=== PATIENT | male | born 1945 | race Caucasian/White ===

== ENCOUNTER → 2017-09-10 | Outpatient (CLI) | payer MEDICARE, BC | LOC: COL.RAD 09:03 | DX: C61 Malignant neoplasm of prostate (principal) | CPT/HCPCS: A9503 ==

== ENCOUNTER 2018-08-16 21:01 | Emergency (ER) | payer MEDICARE, BC ==
[~2018-08-16] VITALS: Ht 170.2 cm; Wt 128.6 kg
[2018-08-16 21:04] VITALS: TEMP 97.6
[2018-08-16] MEDS ORDERED: APRESOLINE 10MG10 MG PO (21:38)
[2018-08-16 21:41] VITALS: BP 165/86; PULSE 72
[2018-08-16] MEDS ORDERED: NORVASC 10MG10 MG PO (21:57)
[2018-08-16] MEDS ORDERED: LIPITOR20 MG PO (21:57)
[2018-08-16] MEDS ORDERED: BENICAR HCT 251 TAB PO (21:58)
[2018-08-16] MEDS ORDERED: CALCIUM CARBON650 M2 PO (21:59)
[2018-08-16] MEDS ORDERED: VITAMIN D 400400 IU PO (21:59)
[2018-08-16] MEDS ORDERED: MAG-OX 400400 MG/TAB PO (22:00)
[2018-08-16] MEDS ORDERED: FLEXERIL 1010 MG/TAB PO (22:00)
[2018-08-16] MEDS ORDERED: ASPIRIN 81M81 MG/TA2 PO (22:01)
[2018-08-16] MEDS ORDERED: MOBIC15 MG PO (22:01)
[2018-08-16] MEDS ORDERED: ULTRAM 50MG TAB50 MG PO (22:01)
[2018-08-16] MEDS ORDERED: ZYLOPRIM 300MG300 MG PO (22:01)
[2018-08-16] MEDS ORDERED: FLOMAX 0.40.4 MG/CAP PO (22:02)
[2018-08-16] MEDS ORDERED: MEGACE20 MG PO (22:02)
[2018-08-16] MEDS ORDERED: GLUCOPHAGE500 MG/TAB PO (22:02)
== END 2018-08-16 21:53 | disposition home or self-care (01) ==
LOC: COL.ER 21:01
DX: I10 Essential (primary) hypertension (principal); Z95.5 Presence of coronary angioplasty implant and graft

== ENCOUNTER 2018-11-03 13:05 | Inpatient (IN) | payer MEDICARE, BC ==
[~2018-11-03] VITALS: Ht 170.2 cm; Wt 120.0 kg
[~2018-11-03 13:05] MED LIST: APRESOLINE 10MG10 MG PO; ASPIRIN 81M81 MG/TA2 PO; BENICAR HCT 251 TAB PO; CALCIUM CARBON650 M2 PO; FLEXERIL 1010 MG/TAB PO; FLOMAX 0.40.4 MG/CAP PO; GLUCOPHAGE500 MG/TAB PO; LIPITOR20 MG PO; MAG-OX 400400 MG/TAB PO; MEGACE20 MG PO; MOBIC15 MG PO; NORVASC 10MG10 MG PO; ULTRAM 50MG TAB50 MG PO; VITAMIN D 400400 IU PO; ZYLOPRIM 300MG300 MG PO
[2018-11-28] VITALS (11 sets, daily range): BP systolic 102–157; BP diastolic 61–87; PULSE 82–110; TEMP 98–98.4
--- NOTE | 2018-11-28 10:00 | NUR ---
arrived on unit per WC to room 327, prepped for surgery without incident, explanation given to patient and his on going to and returning from surgery, verbalizes understanding, lab in and blood drawn,
[2018-11-28 10:03] LABS: INR 1.3 (0.8-3.0); PROTHROMBIN TIME 14.5 SECONDS (9.7-12.8)
--- NOTE | 2018-11-28 13:50 | NUR ---
returned to room from PACU per bed, awake and alert, IV infusing and placed on pumpat 100ml/hr, O2 off and O2 sat 94%, has sensation to left foot and is able to wiggle toes on left, has minimal sensation to right foot but unable to move foot, occlusive dressing to right hip CD&I, SCDs and SIMEON hose on bilaterally, full assessment completed, see interventions for further info, taking water and tolerates well, will provide pudding per his request, at bedside
--- NOTE | 2018-11-28 14:00 | NUR ---
had chocolate pudding and tolerated well,
--- NOTE | 2018-11-28 14:30 | NUR ---
has sensation to right foot and is moving toes, c/o pain to low back area, repositioned over towards left side for comfort and he states this helps back pain a bit,
--- NOTE | 2018-11-28 14:50 | NUR ---
continues to c/o back pain and asked to sit up on side of bed, sat up on side of bed, then stood and ambulated to recliner, states this does feel better and will sit up in recliner for a while,
--- NOTE | 2018-11-28 15:30 | NUR ---
requesting to go back to bed, assited out of chair and into bed, c/o pain to right hip and medicated with hydrocodone 7.5mg 2 tabs, remains at bedside
--- NOTE | 2018-11-28 15:58 | NUR ---
DANIELA met with the patient and patient's , Trisha, to discuss discharge plan. The patient lives in [place] with his . He reports independence with ADLs and has a cane and walker. The patient's PCP is Dr. Stanislav Damon and he receives his medications at the [facility]. He reports no difficulties obtaining his meds. The patient does not have advanced directives in EMR, but he states that he did complete one in the past. He states that him and his cannot find their copy though and were interested in a form for DPOA-HC. DANIELA provided. The patient plans to return home with his upon discharge. He states that his doctor informed him that he should not need therapy upon discharge. No identified needs at this time, but SW to continue to follow.
--- NOTE | 2018-11-28 16:30 | NUR ---
continues to c/o pain to back and right hip, medicated with morphine 4mg slow IV
--- NOTE | 2018-11-28 17:00 | NUR ---
appears to be dozing, awakens easily and states pain is better, still has some in his back but it is also much better, MARK Josue notified that he was given 10mg morphine slow IV,
--- NOTE | 2018-11-28 17:30 | NUR ---
awakens easily and visits with family, denies needs
--- NOTE | 2018-11-28 18:15 | NUR ---
repositioned up in bed, has ordered something to eat
--- NOTE | 2018-11-28 18:48 | NUR ---
bedside shift report given to ANTHONY Meier
--- NOTE | 2018-11-28 20:38 | NUR ---
Assessment completed. Patient is A&O x 4. VSS, on room air at this time. Pain controlled at this time with alternating [place]. Bulky foam tape dressing to right hip is CDI with an ice pack maintained to hip. Pedal pulses intact. BLE kayli hose/scds on. Tolerating diet with no c/o nausea. Voiding with no difficulities. IVF infusing with intermittent antibiotic per orders. Up with assist x 1 with walker and gait belt, gait is steady. Denies any concerns or needs at this time. Bed is in a low position with call light in reach.
--- NOTE | 2018-11-28 23:14 | NUR ---
Patient ambulated to the bathroom with standby assist and walker, gait steady. Reports pain to incision and chronic lower back prn [place] given at this time. Repositioned in bed with assist x 2. Denies any concerns or needs, call light remains within reach.
[2018-11-29 00:53] VITALS: BP 155/78; PULSE 116; TEMP 98.6
--- NOTE | 2018-11-29 03:00 | NUR ---
Patient is resting with eyes closed and even respirations, does not appear to be in any distress. Bed remains in a low position with call light in reach.
--- NOTE | 2018-11-29 04:51 | NUR ---
Patient has rested well through the night. Right hip and chronic back pain has continued to be controlled with [place] and [place]. Right hip bulky foam tape dressing remains CDI with an ice pack maintained. Up with standby assist through the night with walker, gait remains steady. IV to INT at this time with good PO intake, last dose of antibiotic due later this morning. Bed is in a low position with call light in reach.
[2018-11-29 05:26] VITALS: BP 154/85; PULSE 104; TEMP 98.3
--- NOTE | 2018-11-29 06:30 | NUR ---
Reported on to Adrienne CRUZ. Patient resting comfortably, supine in bed alert and oriented. Incision site to right hip covered with foam occlusive dressing, CDI. INT to right hand CDI, no signs of infiltration. SCDs and SIMEON hose thigh high on bilaterally. VSS and assessment as charted. C/O 4/10 sharp pain to right hip while moving.
[2018-11-29 06:48] LABS: HEMATOCRIT 38.3 % (42.0-52.0); HEMOGLOBIN 12.8 g/dl (13.5-18.0)
[2018-11-29 07:15] VITALS: BP 133/94; PULSE 82; TEMP 98
--- NOTE | 2018-11-29 08:45 | NUR ---
PRN Hydrocodone 2 tablets given PO for pain. Patient refused Flomax because he stated that his doctor has ordered that he take this medication HS.
--- NOTE | 2018-11-29 09:25 | NUR ---
Pain reassessed after PT conducted and rated at a 3/10 to right hip while sitting in recliner, legs elevated and ice applied to affected side.
--- NOTE | 2018-11-29 10:30 | NUR ---
SIMEON hose removed bilaterally. Patient assisted from sitting to standing with gait belt and walker. Occlusive dressing removed. Incision site well approximated with yair, CDI, no redness, edema or drainage noted. Aquacel dressing applied over incision. Patient tolerated well. C/O 0/10 pain. Assisted back to chair, legs elevated, ice pack applied to right hip. Patient voiced no other concerns at this time.
[2018-11-29 11:16] VITALS: BP 116/70; PULSE 91; TEMP 98.1
--- NOTE | 2018-11-29 11:30 | NUR ---
Reported off to Adrienne CRUZ.
[2018-11-29 16:11] VITALS: BP 156/82; PULSE 90; TEMP 98.1
--- NOTE | 2018-11-29 19:30 | NUR ---
Assessment completed. Patient is A&O x 4. VSS, on room air. Right hip pain controlled with current oral regimen at this time. Aquacell dressing to right hip is CDI with a fresh ice pack applied. Pedal pulses intact. BLE kayli hose/scds on while in bed. Tolerating diet with no c/o nausea. Voiding with no difficulities, does have some urgency when needing to urinate. INT to right hand. Up with assist x 1 with walker and gait belt, gait is steady. Denies any concerns or needs at this time. Bed is in a low position with call light in reach.
[2018-11-29 21:00] VITALS: BP 151/85; PULSE 114; TEMP 98.6
--- NOTE | 2018-11-29 22:45 | NUR ---
Patient has been resting well, when awakened he denies any pain. Continues to ambulate with standby assist to the restroom with a steady gait. Denies any concerns or needs at this time.
[2018-11-30 00:52] VITALS: BP 121/62; PULSE 106; TEMP 98.6
[2018-11-30 04:00] VITALS: BP 150/93; PULSE 89; TEMP 99.1
--- NOTE | 2018-11-30 05:13 | NUR ---
Patient has rested intermittently through the night, reports after requesting to have his Flomax rescheduled with HS meds that he felt he was up a lot through the night urinating and wasn't able to make it sometimes having incontinence. VSS. Pain to right hip and chronic low back pain continues to be controlled with oral pain medication. Aquacell dressing to right hip remains CDI with a fresh ice pack applied this morning. Denies any concerns or needs at this time. Currently patient is sitting up in the chair with call light in reach.
[2018-11-30 06:14] LABS: HEMATOCRIT 39.7 % (42.0-52.0); HEMOGLOBIN 13.3 g/dl (13.5-18.0)
--- NOTE | 2018-11-30 06:30 | NUR ---
Reported on to Martin CRUZ. Patient resting comfortably, sitting in recliner with legs elevated, alert and oriented. Aquacell dressing to right hip is CDI. INT to right hand CDI and no signs of infiltration, redness, warmth, tenderness noted. Thigh high SIMEON hose on bilateral lower extremities. Pain rated as a constant, aching 2/10 to right hip which does not radiate. VSS, assessment as charted.
[2018-11-30 07:00] VITALS: BP 124/79; PULSE 84; TEMP 98.8
[2018-11-30] MEDS ORDERED: ROXICODONE 55 MG/TAB PO (07:01)
[2018-11-30] MEDS ORDERED: NORCO 325 MG-7.1 TAB PO (07:01)
[2018-11-30] MEDS ORDERED: ASPIRIN 32325 MG/TAB PO (07:05)
--- NOTE | 2018-11-30 07:21 | NUR ---
Report from Renea CRUZ.
--- NOTE | 2018-11-30 07:30 | NUR ---
Patient ambulated from chair to sink to shave and from sink to toilet to void. Ambulated over ten feet with walker and standby assist. Patient returned to recliner, legs elevated and ice pack applied to right hip. Pain reassessed at 2/10 to right hip.
--- NOTE | 2018-11-30 08:45 | NUR ---
[place] 7.5mg 1 tablet given PO for anticipated pain with OT/PT.
--- NOTE | 2018-11-30 08:55 | NUR ---
INT disconnected. Catheter tip intact. Patient tolerated.
--- NOTE | 2018-11-30 09:30 | NUR ---
Pain reassessed after OT had patient shower. Pain stated at 3-4/10 aching to right hip. Patient does not request any pain medication at this time.
--- NOTE | 2018-11-30 10:59 | NUR ---
agree with student's assessments.
[2018-11-30 11:22] VITALS: BP 137/71; PULSE 99; TEMP 98.9
--- NOTE | 2018-11-30 11:25 | NUR ---
Reported off to Martin CRUZ.
--- NOTE | 2018-11-30 12:03 | NUR ---
First visit from the scalp treatment operator. No needs right now.
--- NOTE | 2018-11-30 12:41 | NUR ---
PT RESTING IN BED AFTER EATING LUNCH. PREMEDICATED FOR THERAPY PER PT REQUEST. PLAN ON DISCHARGE HOME LATER TODAY.
--- NOTE | 2018-11-30 15:29 | NUR ---
DISCHARGE INSTRUCTIONS REVIEWED WITH PT QUESTIONS ANSWERED. PT TAKEN BY WHEEL CHAIR TO FRONT BY STAFF.
== END 2018-11-30 15:10 | disposition home or self-care (01) | DRG 470 ==
LOC: JCC 11-28 07:30
PROVIDERS: ADMIT Orthopaedic Surgery
PROC: 0SR90JA Replacement of Right Hip Joint with Synthetic Substitute, Uncemented, Open Approach (ICD-10-PCS; principal; 2018-11-28 10:30)
DX: M16.11 Unilateral primary osteoarthritis, right hip (principal); Z68.41 Body mass index [BMI] 40.0-44.9, adult; I12.9 Hypertensive chronic kidney disease with stage 1 through stage 4 chronic kidney disease, or unspecified chronic kidney disease; N18.3 Chronic kidney disease, stage 3 (moderate); I25.10 Atherosclerotic heart disease of native coronary artery without angina pectoris; Z95.5 Presence of coronary angioplasty implant and graft; E78.5 Hyperlipidemia, unspecified; Z85.46 Personal history of malignant neoplasm of prostate; Z87.891 Personal history of nicotine dependence; E66.9 Obesity, unspecified
CPT/HCPCS: A4216; A9284; C1776; J0690; J2250; J2270; J2370; J2405; J2704; J3010; J7030

== ENCOUNTER → 2018-11-23 | Outpatient (CLI) | payer MEDICARE, BC | LOC: COL.LAB 14:27 | DX: Z01.812 Encounter for preprocedural laboratory examination (principal) ==

== ENCOUNTER → 2019-01-17 | Outpatient (CLI) | payer MEDICARE, BC ==
[~2019-01-17] MED LIST changes: +ASPIRIN 32325 MG/TAB PO; +NORCO 325 MG-7.1 TAB PO; +ROXICODONE 55 MG/TAB PO
== END ==
LOC: COL.RAD 10:09
DX: D50.9 Iron deficiency anemia, unspecified (principal); I26.99 Other pulmonary embolism without acute cor pulmonale; J90 Pleural effusion, not elsewhere classified; J98.11 Atelectasis; M46.94 Unspecified inflammatory spondylopathy, thoracic region; N28.1 Cyst of kidney, acquired; K80.20 Calculus of gallbladder without cholecystitis without obstruction; Z96.643 Presence of artificial hip joint, bilateral; K57.30 Diverticulosis of large intestine without perforation or abscess without bleeding
CPT/HCPCS: Q9967

== ENCOUNTER 2019-06-15 10:00 | Emergency (ER) | payer MEDICARE, BC ==
[~2019-06-15] VITALS: Ht 170.2 cm; Wt 123.2 kg
[2019-06-15 10:06] VITALS: BP 146/117; TEMP 98.4
[2019-06-15 10:36] LABS: BASO # 0.1 (0.0-0.2); BASO % 0.5 % (0.0-2.0); EOS # 0.4 (0.0-0.7); EOS % 3.9 % (0-4.0); GRAN # 6.7 (1.4-6.5); GRAN % 69.4 % (42.2-75.2); HEMATOCRIT 41.7 % (42.0-52.0); HEMOGLOBIN 13.7 g/dl (13.5-18.0); LYMPH # 1.8 (1.2-3.4); LYMPH % 18.3 % (20.0-51.0); MEAN CELL VOLUME 94 fl (80.0-100.0); MEAN CORPUSCULAR HEMOGLOBIN 31 pg (27.0-31.0); MEAN CORPUSCULAR HGB CONC 33 g/dl (33.0-37.0); MEAN PLATELET VOLUME 10.7 fl (7.4-10.4); MONO # 0.7 (0.1-0.6); PLATELET COUNT 282 K/mm3 (130-400); RED BLOOD COUNT 4.45 M/mm3 (4.20-5.60); REDCELL DISTRIBUTION WIDTH-CV 14.6 % (11.5-14.5)
[2019-06-15 10:40] LABS: INR 1.5 (0.8-3.0); PROTHROMBIN TIME 17.6 SECONDS (9.7-12.8)
[2019-06-15 10:43] LABS: PARTIAL THROMBOPLASTIN TIME 33.4 SECONDS (26.0-37.0)
[2019-06-15 10:50] LABS: ALANINE AMINOTRANSFERASE 15 U/L (21-72); ALKALINE PHOSPHATASE 78 U/L (50-136); ANION GAP 10 mmol/L (7-16); AST,SGOT 37 U/L (15-37); BILIRUBIN,TOTAL 0.7 mg/dL (0.0-1.0); BLOOD UREA NITROGEN 27 mg/dL (9-20); CALCIUM 9.5 mg/dL (8.4-10.2); CARBON DIOXIDE 21 mmol/L (22-30); CHLORIDE 106 mmol/L (98-107); CREATININE, serum 1.27 (0.66-1.25); GLUCOSE 119 mg/dL (74-106); POTASSIUM 4.1 mmol/L (3.4-5.0); SODIUM 136 mmol/L (137-145); TOTAL PROTEIN 7.6 gm/dL (6.4-8.2)
[2019-06-15] MEDS ORDERED: ZYLOPRIM 300MG300 MG PO (10:57)
[2019-06-15] MEDS ORDERED: APRESOLINE 10MG10 MG PO (10:57)
[2019-06-15] MEDS ORDERED: VITAMIN D 400400 IU PO (10:58)
[2019-06-15] MEDS ORDERED: ASPIRIN 81M81 MG/TA2 PO (10:58)
[2019-06-15 10:59] LABS: LIPASE 38 U/L (23-300)
[2019-06-15] MEDS ORDERED: ELIQUIS 2.5 PO (10:59)
[2019-06-15 11:16] LABS: TROPONIN-I < 0.012 ng/mL (0.000-0.035)
[2019-06-15] MEDS ORDERED: ISMO 20MG20 MG PO (14:34)
[2019-06-15 15:01] VITALS: PULSE 55
== END 2019-06-15 15:01 | disposition home or self-care (01) ==
LOC: COL.ER 10:00
PROVIDERS: Emergency Medicine
DX: R07.89 Other chest pain (principal); I10 Essential (primary) hypertension; E11.9 Type 2 diabetes mellitus without complications; I25.10 Atherosclerotic heart disease of native coronary artery without angina pectoris; I25.2 Old myocardial infarction; Z79.84 Long term (current) use of oral hypoglycemic drugs; Z79.82 Long term (current) use of aspirin; Z95.5 Presence of coronary angioplasty implant and graft

== ENCOUNTER 2019-07-21 07:17 | Day surgery (SDC) | payer MEDICARE, BC ==
[~2019-07-21] VITALS: Ht 170.3 cm; Wt 126.7 kg
[2019-07-21] VITALS (11 sets, daily range): BP systolic 109–1448; BP diastolic 73–89; PULSE 57–70; TEMP 97.9
[~2019-07-21 07:17] MED LIST changes: +ELIQUIS 2.5 PO; +ISMO 20MG20 MG PO
[2019-07-21 07:45] LABS: HEMATOCRIT 43.3 % (42.0-52.0); HEMOGLOBIN 14.2 g/dl (13.5-18.0); MEAN CELL VOLUME 94 fl (80.0-100.0); MEAN CORPUSCULAR HEMOGLOBIN 31 pg (27.0-31.0); MEAN CORPUSCULAR HGB CONC 33 g/dl (33.0-37.0); MEAN PLATELET VOLUME 10.3 fl (7.4-10.4); PLATELET COUNT 326 K/mm3 (130-400); RED BLOOD COUNT 4.61 M/mm3 (4.20-5.60); REDCELL DISTRIBUTION WIDTH-CV 14.5 % (11.5-14.5)
[2019-07-21 08:08] LABS: CALCIUM 9.9 mg/dL (8.4-10.2); CREATININE, serum 1.51 (0.66-1.25); POTASSIUM 4.5 mmol/L (3.4-5.0)
[2019-07-21 08:12] LABS: PROTHROMBIN TIME 11.4 SECONDS (9.7-12.8)
[2019-07-21 08:15] LABS: PARTIAL THROMBOPLASTIN TIME 28.1 SECONDS (26.0-37.0)
[2019-07-21] MEDS ORDERED: NITROSTAT0.4 MG/TAB SL (08:33)
[2019-07-21] MEDS ORDERED: ISMO 20MG20 MG PO (08:38)
--- NOTE | 2019-07-21 08:47 | NUR ---
SEE KEENA FOR MEDICATION ADMINISTRATION TIMES AND INTRA/POST SEDATION ASSESSMENT
--- NOTE | 2019-07-21 13:15 | NUR ---
Discharge instructions given to pt.pt verbalizes understanding.INT removed,catheter tip intact.Pt escorted out via wheelchair.Right groin dressing observed clean,dry,intact and soft to touch after ambulation.Right radial dressing observed clean,dry,and intact,soft to touch.
== END 2019-07-21 15:46 | disposition home or self-care (01) ==
LOC: COL.CAR 07:17
PROVIDERS: Internal Medicine Cardiovascular Disease
DX: I48.0 Paroxysmal atrial fibrillation (principal); I25.110 Atherosclerotic heart disease of native coronary artery with unstable angina pectoris; I08.1 Rheumatic disorders of both mitral and tricuspid valves; I25.2 Old myocardial infarction; E78.5 Hyperlipidemia, unspecified; I10 Essential (primary) hypertension; Z79.01 Long term (current) use of anticoagulants; Z79.84 Long term (current) use of oral hypoglycemic drugs; Z95.5 Presence of coronary angioplasty implant and graft; Z86.711 Personal history of pulmonary embolism; Z87.891 Personal history of nicotine dependence; Z82.49 Family history of ischemic heart disease and other diseases of the circulatory system
CPT/HCPCS: C1769; C1894; J1644; J2250; J3010; Q9967

== ENCOUNTER → 2019-10-26 | Outpatient (CLI) | payer MEDICARE, BC ==
[~2019-10-26] MED LIST changes: +NITROSTAT0.4 MG/TAB SL
== END ==
LOC: COL.RAD 07:44
DX: N28.89 Other specified disorders of kidney and ureter (principal); N28.1 Cyst of kidney, acquired; K57.30 Diverticulosis of large intestine without perforation or abscess without bleeding
CPT/HCPCS: Q9967

== ENCOUNTER → 2020-04-18 | Outpatient (CLI) | payer MEDICARE, BC | LOC: COL.RAD 04-17 11:30 | DX: N28.9 Disorder of kidney and ureter, unspecified (principal) | CPT/HCPCS: Q9967 ==

== ENCOUNTER → 2020-11-25 | Outpatient (CLI) | payer MEDICARE, BC ==
[~2020-11-25] MED LIST changes: +CALCIUM 600600 MG PO; -CALCIUM CARBON650 M2 PO; +CARDIZEM CD 12120 MG PO; +CEPHALEXIN500 M1 PO; +ELIQUIS 5MG PO; +IMDUR 30MG30 MG/TAB PO; +IMDUR 60MG60 MG/TAB PO; +LIPITOR 40MG TA40 MG PO; +LIPITOR 80MG80 MG PO; -LIPITOR20 MG PO; -NORVASC 10MG10 MG PO; +NORVASC 5MG5 MG/TAB PO; +PACERONE400 MG PO
== END ==
LOC: COL.RAD 09:50
DX: N28.1 Cyst of kidney, acquired (principal); C61 Malignant neoplasm of prostate

== ENCOUNTER → 2021-05-19 | Outpatient (CLI) | payer MEDICARE, BC | LOC: COL.RAD 13:36 | DX: N28.1 Cyst of kidney, acquired (principal) ==

== ENCOUNTER 2021-07-12 10:59 | Inpatient (IN) | payer MEDICARE, BC ==
[2021-07-12] VITALS (241 sets, daily range): BP systolic 102–140; BP diastolic 83–92; PULSE 97–140; TEMP 98.2–98.8; O2SAT 70–100
[~2021-07-12] VITALS: Ht 170.2 cm; Wt 127.1 kg
[~2021-07-12 10:59] MED LIST changes: -CARDIZEM CD 12120 MG PO; -CEPHALEXIN500 M1 PO; -ELIQUIS 5MG PO; -IMDUR 60MG60 MG/TAB PO; -LIPITOR 80MG80 MG PO; -PACERONE400 MG PO
[2021-07-12 12:36] LABS: BASO # 0.1 K/mm3 (0.0-0.2); BASO % 0.6 % (0.0-2.0); EOS # 0.2 K/mm3 (0.0-0.7); EOS % 1.5 % (0-4.0); GRAN # 11.3 K/mm3 (1.4-6.5); GRAN % 82.9 % (42.2-75.2); HEMATOCRIT 41.6 % (42.0-52.0); HEMOGLOBIN 13.6 g/dl (13.5-18.0); LYMPH # 1.1 K/mm3 (1.2-3.4); LYMPH % 8.4 % (20.0-51.0); MEAN CELL VOLUME 96 fl (80.0-100.0); MEAN CORPUSCULAR HEMOGLOBIN 32 pg (27.0-31.0); MEAN CORPUSCULAR HGB CONC 33 g/dl (33.0-37.0); MEAN PLATELET VOLUME 10.5 fl (7.4-10.4); MONO # 0.7 K/mm3 (0.1-0.6); MONO % 5.2 % (1.7-9.3); PLATELET COUNT 231 K/mm3 (130-400); RED BLOOD COUNT 4.32 M/mm3 (4.20-5.60); REDCELL DISTRIBUTION WIDTH-CV 14.6 % (11.5-14.5)
[2021-07-12 12:42] LABS: INR 1.2 (0.8-3.0)
[2021-07-12 12:53] LABS: ALBUMIN 3.5 gm/dL (3.4-4.8); BILIRUBIN,TOTAL 0.7 mg/dL (0.2-1.2); C-REACTIVE PROTEIN 1.5 mg/dL (0.00-0.50); CALCIUM 9.6 mg/dL (8.4-10.2); CREATININE, serum 1.78 mg/dL (0.72-1.25); POTASSIUM 4.2 mmol/L (3.5-4.5); TOTAL PROTEIN 7.5 gm/dL (6.2-8.1)
[2021-07-12 13:05] LABS: TROPONIN-I 0.073 ng/mL (0.00-0.033)
[2021-07-12] MEDS ORDERED: CARDIZEM CD 12120 MG PO (15:51)
--- NOTE | 2021-07-12 19:15 | NUR ---
CRITICAL VALUE OF HEPARIN XA RECEIVED DURING REPORT PATIENT HEPARIN PLACED ON HOLD AT THIS TIME FOR 2 HOURS WITH REDRAW AT THAT TIME, ORDER FOR LAB ENTERED PER PROTOCOL
[2021-07-13] VITALS (231 sets, daily range): BP systolic 105–157; BP diastolic 59–98; PULSE 80–90; TEMP 97.7–99; O2SAT 75–100
--- NOTE | 2021-07-13 00:30 | NUR ---
BLADDER SCAN PREFORMED DUE TO PATIENT NOT URINATING SINCE ADMISSION, NOTED 261ML FOR HIGHEST AMOUNT ON BLADDER SCAN, PATIENT DID ATTEMPT TO URINATE WITHUOUT SUCCESS AT THIS TIME WILL CONTIUE TO MONITOR
[2021-07-13 03:13] LABS: COLLECTION METHOD CLEAN CATCH
[2021-07-13 03:19] LABS: MUCOUS Present /lpf; PH 5 (5-8); SQUAMOUS EPITHELIAL None Seen /hpf; URINE APPEARANCE Hazy; URINE BACTERIA None Seen /hpf; URINE BILIRUBIN Negative (NEGATIVE); URINE BLOOD Negative (NEGATIVE); URINE COLOR Yellow; URINE GLUCOSE Negative (NEGATIVE); URINE KETONE Negative (NEGATIVE); URINE LEUKOCYTE ESTERASE Negative (NEGATIVE); URINE NITRATE Negative (NEGATIVE); URINE PROTEIN(semi-quant) 1+ (NEGATIVE); URINE RBC 0-2 /hpf; URINE UROBILINOGEN Negative (NEGATIVE)
[2021-07-13 04:35] LABS: BASO # 0.1 K/mm3 (0.0-0.2); BASO % 0.4 % (0.0-2.0); EOS # 0.2 K/mm3 (0.0-0.7); EOS % 1.7 % (0-4.0); GRAN % 77.2 % (42.2-75.2); HEMATOCRIT 38.3 % (42.0-52.0); HEMOGLOBIN 12.5 g/dl (13.5-18.0); LYMPH # 1.5 K/mm3 (1.2-3.4); MEAN CELL VOLUME 96 fl (80.0-100.0); MEAN CORPUSCULAR HEMOGLOBIN 31 pg (27.0-31.0); MEAN CORPUSCULAR HGB CONC 33 g/dl (33.0-37.0); MEAN PLATELET VOLUME 10.4 fl (7.4-10.4); MONO # 0.8 K/mm3 (0.1-0.6); MONO % 6.7 % (1.7-9.3); PLATELET COUNT 244 K/mm3 (130-400); REDCELL DISTRIBUTION WIDTH-CV 14.6 % (11.5-14.5)
[2021-07-13 05:19] LABS: CALCIUM 9.1 mg/dL (8.4-10.2); CREATININE, serum 1.6 mg/dL (0.72-1.25); MAGNESIUM 1.6 mg/dL (1.6-2.6); POTASSIUM 4.5 mmol/L (3.5-4.5)
[2021-07-13 05:35] LABS: TROPONIN-I 0.296 ng/mL (0.00-0.033)
--- NOTE | 2021-07-13 11:00 | NUR ---
This RN noted patient's arm is edematous, red, and bruised on Right arm. Amio disconnected from Right AC IV and Warm blanket applied to Right arm. Will ask Dr. Stern when he rounds soon if Central Line can be placed d/t poor venous access. When asked, patient states that his arm is painful.
--- NOTE | 2021-07-13 11:30 | NUR ---
HEPARIN XA NOT DRAWN AT THIS TIME. D/T DIFFICULTY WITH LAB DRAWS. WILL ASK DR. BUTLER FOR CENTRAL LINE PLACEMENT WHEN HE ROUNDS ON THIS PATIENT.
--- NOTE | 2021-07-13 12:00 | NUR ---
DR. RAINES CALLED FOR CENTRAL LINE PLACEMENT DUE TO POOR VENOUS ACCESS, INFILTRATED IV SITES AND DIFFICULTY WITH LAB DRAWS. HE GIVES ORDER TO PLACE HEPARIN GTT ON HOLD AND HE WILL BE BY IN A COUPLE HOURS TO PLACE LINE. HEPARIN GTT PLACED ON HOLD. DR. BUTLRE GAVE ORDER TO HAVE CENTRAL LINE PLACED WHEN HE ROUNDED ON THIS PATIENT.
--- NOTE | 2021-07-13 15:00 | NUR ---
DR. RAINES CONFIRMS THAT CENTRAL LINE IN LEFT SUBCLAVIAN IS IN PLACE AND IS OK TO USE. HE GIVES INSTRUCTION TO RESTART HEPARIN GTT AT 16:00.
[2021-07-13 15:16] LABS: HEMATOCRIT 40.1 % (42.0-52.0); HEMOGLOBIN 13.1 g/dl (13.5-18.0); MEAN CELL VOLUME 97 fl (80.0-100.0); MEAN CORPUSCULAR HEMOGLOBIN 32 pg (27.0-31.0); MEAN CORPUSCULAR HGB CONC 33 g/dl (33.0-37.0); MEAN PLATELET VOLUME 10.2 fl (7.4-10.4); PLATELET COUNT 258 K/mm3 (130-400); RED BLOOD COUNT 4.13 M/mm3 (4.20-5.60); REDCELL DISTRIBUTION WIDTH-CV 14.7 % (11.5-14.5)
[2021-07-13 15:24] LABS: INR 1.2 (0.8-3.0); PROTHROMBIN TIME 13.1 SECONDS (9.7-12.8)
[2021-07-13 15:27] LABS: PARTIAL THROMBOPLASTIN TIME 25.3 SECONDS (26.0-37.0)
[2021-07-13 15:37] LABS: CREATININE, serum 1.88 mg/dL (0.72-1.25); POTASSIUM 4.4 mmol/L (3.5-4.5)
--- NOTE | 2021-07-13 19:05 | NUR ---
Received report from ANTHONY Manrique. Patient resting comfortably in recliner watching TV. All vitals within normal limits. Patient reports pain in the right arm/shoulder from prior IV infiltration. Patient's right arm is reddened, and swollen. Upper arm is especially inflamed and bruising is noted. Warm compress applied. Patient transferred with SBA to bed per his request; tolerated well. No further needs noted at this time.
[2021-07-14] VITALS (168 sets, daily range): BP systolic 109–163; BP diastolic 69–123; PULSE 70–165; TEMP 98.1–98.4; O2SAT 78–99
--- NOTE | 2021-07-14 03:08 | NUR ---
This RN at telemetry station when patient HR noted to be irregular in 130-140s. Meenu, hospitalist, also at telemetry station at time of occurence. Upon assessment, patient attempting to sit up in bed. He states he woke suddenly with a need to void and was unable to hold it. BP and O2 sat remain stable. Patient repositioned and linens exchanged. RT notified to obtain STAT EKG. Meenu notified of EKG results and patient's HR of 160s. Received orders to restart Amio drip at 0.5 mg/min and to continue until evaluated by cardiology in the AM.
[2021-07-14 04:51] LABS: BASO # 0.1 K/mm3 (0.0-0.2); BASO % 0.6 % (0.0-2.0); EOS # 0.4 K/mm3 (0.0-0.7); EOS % 3.1 % (0-4.0); GRAN # 10.3 K/mm3 (1.4-6.5); GRAN % 76.9 % (42.2-75.2); HEMATOCRIT 40.2 % (42.0-52.0); HEMOGLOBIN 13.3 g/dl (13.5-18.0); LYMPH # 1.7 K/mm3 (1.2-3.4); LYMPH % 12.4 % (20.0-51.0); MEAN CELL VOLUME 94 fl (80.0-100.0); MEAN CORPUSCULAR HEMOGLOBIN 31 pg (27.0-31.0); MEAN CORPUSCULAR HGB CONC 33 g/dl (33.0-37.0); MEAN PLATELET VOLUME 10.3 fl (7.4-10.4); MONO # 0.8 K/mm3 (0.1-0.6); PLATELET COUNT 251 K/mm3 (130-400); REDCELL DISTRIBUTION WIDTH-CV 14.5 % (11.5-14.5)
[2021-07-14 05:16] LABS: CREATININE, serum 1.72 mg/dL (0.72-1.25); POTASSIUM 4.2 mmol/L (3.5-4.5)
--- NOTE | 2021-07-14 07:00 | NUR ---
REPORT RECEIVED FROM ANTHONY VALE. PATIENT IS CURRENTLY SLEEPING. VS WNL. CARE TAKEN OVER
--- NOTE | 2021-07-14 07:24 | NUR ---
Report given to ANTHONY Manrique.
--- NOTE | 2021-07-14 08:00 | NUR ---
POWERSAW SUPERVISOR HERE TO DO ECHO.
--- NOTE | 2021-07-14 09:19 | NUR ---
heater worker met with patient at bedside. Patient reports that he lives at home with his Trisha ([phone]). Patient reports that at home he is fully independent with his activities of daily living and that he uses a cane to assist with his balance during ambulation. PCP is Dr. Damon and he utilizes [facility] for perscriptions with no cost difficulties. Patient does not use O2 within the home but he does have a CPAP machine. Unsure of where he receives his supplies through. Patient reports that he has a DPOA-HC established and that his son Elloitt ([phone]) is his agent. Collaborated with hospitalist for PT/OT order. Spoke with the patient about HH services. Patient states that he has never had HH services before but that his was supposed to have someone come into the home starting Wednesday. Unsure of what company this was set up through, and if that will still happen due to him being in the hospital.
--- NOTE | 2021-07-14 09:38 | NUR ---
Attempted to contact the patients chelle Rico and was unsuccessful
--- NOTE | 2021-07-14 13:00 | NUR ---
Patient to cath lab tech at this time with ANTHONY Wilson. Patient's cellphone placed in his closet.
--- NOTE | 2021-07-14 13:00 | NUR ---
HEPARIN GTT TURNED OFF AT THIS TIME.
--- NOTE | 2021-07-14 13:23 | NUR ---
SEE MERGE FOR ALL MEDICATION ADMINISTRATION TIMES, INTRA AND POST SEDATION ASSESSMENTA
--- NOTE | 2021-07-14 14:00 | NUR ---
PATIENT RETURNS FROM FORENSIC PSYCHOLOGIST AT THIS TIME. HE HAS BILATERAL GROIN SITES. BOTH ARE SOFT, CLEAN, DRY WITH DRESSINGS IN PLACE. PATIENT IS INSTRUCTED ON FLAT TIME STIPLUATIONS. HE IS DROWSY, BUT VERBALIZES UNDERSTANDING. URINAL IS PLACED TO CATCH URINE FROM URGENCY D/T IVF. CALL LIGHT WITHIN REACH.
--- NOTE | 2021-07-14 17:40 | NUR ---
UPDATE GIVEN TO PATIENT'S SON, JAIMEE. HE HAS ME ON SPEAKER PHONE WITH PATIENT'S , TRINITY. PLAN OF CARE DISCUSSED AND QUESTIONS ANSWERED.
--- NOTE | 2021-07-14 18:00 | NUR ---
PATIENT ALLOWED TO SIT UP AT THIS TIME. BOTH GROIN SITES ARE STABLE, SOFT, CLEAN AND DRY. DRESSINGS IN PLACE. HE IS ALLOWED TO EAT HIS DINNER AND URINAL IS IN PLACE. CALL LIGHT WITHIN REACH.
--- NOTE | 2021-07-14 19:30 | NUR ---
BEDSIDE REPORT GIVEN TO ANTHONY FLORES. BOTH CATH SITES EVALUATED AND PLAN OF CARE DISCUSSED.
[2021-07-15] VITALS (190 sets, daily range): BP systolic 110–148; BP diastolic 75–93; PULSE 77–89; TEMP 97.8–99.3; O2SAT 52–100
[2021-07-15 04:34] LABS: CALCIUM 8.9 mg/dL (8.4-10.2); CREATININE, serum 1.61 mg/dL (0.72-1.25); MAGNESIUM 1.8 mg/dL (1.6-2.6); POTASSIUM 4.3 mmol/L (3.5-4.5)
--- NOTE | 2021-07-15 07:15 | NUR ---
Up in recliner at this time. Assessment complete; VS WNL. Assisted to order breakfast. Denies any other needs or complaints at this time. Call light left within reach.
--- NOTE | 2021-07-15 11:43 | NUR ---
Attempt made to contact the patient and was unsuccessful.
--- NOTE | 2021-07-15 16:10 | NUR ---
Resting in bed; Alert and oriented and in no distress. Assisted with ordering dinner tray. No concerns or complaints at this time.
--- NOTE | 2021-07-15 19:14 | NUR ---
Received report from ANTHONY Ortiz.
[2021-07-16] VITALS (7 sets, daily range): BP systolic 118–165; BP diastolic 41–88; PULSE 72–102; TEMP 97.6–98.8
[2021-07-16 06:19] LABS: HEMOGLOBIN 11.4 g/dl (13.5-18.0); MEAN CELL VOLUME 96 fl (80.0-100.0); MEAN CORPUSCULAR HEMOGLOBIN 31 pg (27.0-31.0); MEAN CORPUSCULAR HGB CONC 32 g/dl (33.0-37.0); MEAN PLATELET VOLUME 10.8 fl (7.4-10.4); PLATELET COUNT 245 K/mm3 (130-400); RED BLOOD COUNT 3.69 M/mm3 (4.20-5.60); REDCELL DISTRIBUTION WIDTH-CV 14.6 % (11.5-14.5)
[2021-07-16 06:20] LABS: HEMATOCRIT 35.4 % (42.0-52.0)
[2021-07-16 06:31] LABS: CALCIUM 8.8 mg/dL (8.4-10.2); CREATININE, serum 1.65 mg/dL (0.72-1.25); MAGNESIUM 1.8 mg/dL (1.6-2.6); POTASSIUM 4.3 mmol/L (3.5-4.5)
--- NOTE | 2021-07-16 16:23 | NUR ---
Patient arrived to the medical floor from the ICU at approx. 1320. Patient has done well since being on the floor and has not had any complaints/concerns.
[2021-07-17 01:25] VITALS: BP 137/71; PULSE 77; TEMP 98.4
[2021-07-17 06:00] VITALS: BP 129/69; PULSE 72; TEMP 97.6
--- NOTE | 2021-07-17 06:11 | NUR ---
PT HAS HAD UNEVENTFUL NIGHT. HE HAS HAD NO COMPLAINTS OF PAIN. HE REQUIRES X1 ASSIST TO WALK TO BATHROOM. CALL LIGHT IN REACH.
[2021-07-17 06:40] LABS: HEMOGLOBIN 11.3 g/dl (13.5-18.0); MEAN CELL VOLUME 95 fl (80.0-100.0); MEAN CORPUSCULAR HEMOGLOBIN 31 pg (27.0-31.0); MEAN CORPUSCULAR HGB CONC 33 g/dl (33.0-37.0); MEAN PLATELET VOLUME 10.6 fl (7.4-10.4); PLATELET COUNT 245 K/mm3 (130-400); REDCELL DISTRIBUTION WIDTH-CV 14.7 % (11.5-14.5)
[2021-07-17 06:43] LABS: HEMATOCRIT 34.1 % (42.0-52.0)
[2021-07-17 07:15] LABS: CREATININE, serum 1.58 mg/dL (0.72-1.25); POTASSIUM 4.4 mmol/L (3.5-4.5)
--- NOTE | 2021-07-17 08:59 | NUR ---
Patient sitting up in recliner eating breakfast upon entering the room. Patient denies any pain. Hopes to go home today; stating he feels much better. Patient's arm remains red, swollen, and slightly warm from infiltration of amiodarone while in the ICU. Patient states he only feels pain in the arm when he bumps it on something, but overall feels like it is doing better.
[2021-07-17] MEDS ORDERED: CEPHALEXIN500 M1 PO (11:00)
[2021-07-17] MEDS ORDERED: ELIQUIS 5MG PO (11:00)
[2021-07-17] MEDS ORDERED: PACERONE400 MG PO (11:02)
[2021-07-17] MEDS ORDERED: LIPITOR 80MG80 MG PO (11:02)
[2021-07-17] MEDS ORDERED: IMDUR 60MG60 MG/TAB PO (11:02)
--- NOTE | 2021-07-17 13:23 | NUR ---
Patient discharged. Escorted out by Duaen. Central line was removed by this RN as was telemetry.
--- NOTE | 2021-07-17 13:44 | NUR ---
Bridge Operator Slip contacted patient's , Trisha who advised they would like to get home health set up with [facility] based on a recommendation from Dr. Damon. SW contacted Celi at [facility] and faxed referral with discharge orders. Patient to discharge today with Home Health PT/OT/Nursing.
== END 2021-07-17 13:00 | disposition home health service (06) | DRG 260 ==
LOC: COL.ER 10:59 → ICU 13:56 → MEDICAL 07-16 13:29
PROVIDERS: Internal Medicine; Internal Medicine Cardiovascular Disease; Nurse Practitioner; ADMIT Internal Medicine
PROC: 02HV33Z Insertion of Infusion Device into Superior Vena Cava, Percutaneous Approach (ICD-10-PCS; 2021-07-13)
PROC: 4A023N7 Measurement of Cardiac Sampling and Pressure, Left Heart, Percutaneous Approach (ICD-10-PCS; 2021-07-14)
PROC: B2111ZZ Fluoroscopy of Multiple Coronary Arteries using Low Osmolar Contrast (ICD-10-PCS; 2021-07-14)
PROC: 0JH632Z Insertion of Monitoring Device into Chest Subcutaneous Tissue and Fascia, Percutaneous Approach (ICD-10-PCS; principal; 2021-07-16)
DX: I48.91 Unspecified atrial fibrillation (principal); I21.A1 Myocardial infarction type 2; E87.2 Acidosis; Z68.42 Body mass index [BMI] 45.0-49.9, adult; E78.5 Hyperlipidemia, unspecified; Z85.46 Personal history of malignant neoplasm of prostate; Z96.653 Presence of artificial knee joint, bilateral; Z96.643 Presence of artificial hip joint, bilateral; Z79.84 Long term (current) use of oral hypoglycemic drugs; Z79.82 Long term (current) use of aspirin; Z87.891 Personal history of nicotine dependence; N28.9 Disorder of kidney and ureter, unspecified; I25.10 Atherosclerotic heart disease of native coronary artery without angina pectoris; M10.9 Gout, unspecified; Z95.5 Presence of coronary angioplasty implant and graft; Z86.711 Personal history of pulmonary embolism; I25.2 Old myocardial infarction; E66.01 Morbid (severe) obesity due to excess calories; E11.22 Type 2 diabetes mellitus with diabetic chronic kidney disease; I12.9 Hypertensive chronic kidney disease with stage 1 through stage 4 chronic kidney disease, or unspecified chronic kidney disease; N18.30 Chronic kidney disease, stage 3 unspecified
CPT/HCPCS: 99223-AI; 99232-AI; 99233-AI; 99239; C1760; C1764; C1769; C1887; C1894; J0282; J1160; J1644; J1815; J2250; J3010; J3475; J7060; Q9967

== ENCOUNTER 2021-08-08 15:24 | Emergency (ER) | payer MEDICARE, BC ==
[~2021-08-08] VITALS: Ht 170.2 cm; Wt 127.7 kg
[~2021-08-08 15:24] MED LIST changes: +CARDIZEM CD 12120 MG PO; +CEPHALEXIN500 M1 PO; +ELIQUIS 5MG PO; +IMDUR 60MG60 MG/TAB PO; +LIPITOR 80MG80 MG PO; +PACERONE400 MG PO
[2021-08-08 16:25] VITALS: TEMP 97.6
[2021-08-08 17:17] LABS: BASO # 0.1 K/mm3 (0.0-0.2); BASO % 0.4 % (0.0-2.0); EOS # 0.1 K/mm3 (0.0-0.7); EOS % 0.8 % (0-4.0); GRAN # 10.3 K/mm3 (1.4-6.5); GRAN % 78.8 % (42.2-75.2); HEMATOCRIT 39.4 % (42.0-52.0); HEMOGLOBIN 12.3 g/dl (13.5-18.0); LYMPH # 1.5 K/mm3 (1.2-3.4); LYMPH % 11.2 % (20.0-51.0); MEAN CELL VOLUME 99 fl (80.0-100.0); MEAN CORPUSCULAR HEMOGLOBIN 31 pg (27.0-31.0); MEAN CORPUSCULAR HGB CONC 31 g/dl (33.0-37.0); MEAN PLATELET VOLUME 10.8 fl (7.4-10.4); MONO % 7.8 % (1.7-9.3); PLATELET COUNT 342 K/mm3 (130-400); RED BLOOD COUNT 3.99 M/mm3 (4.20-5.60); REDCELL DISTRIBUTION WIDTH-CV 14.6 % (11.5-14.5)
[2021-08-08 17:28] LABS: ALBUMIN 3.7 gm/dL (3.4-4.8); BILIRUBIN,TOTAL 0.7 mg/dL (0.2-1.2); CREATININE, serum 2.56 mg/dL (0.72-1.25); POTASSIUM 4.4 mmol/L (3.5-4.5)
[2021-08-08 17:35] LABS: TROPONIN-I 0.035 ng/mL (0.00-0.033)
[2021-08-08 19:03] VITALS: BP 122/76; PULSE 76
== END 2021-08-08 19:03 | disposition home or self-care (01) ==
LOC: COL.ER 15:24
PROVIDERS: Family Medicine
DX: E86.0 Dehydration (principal); I95.9 Hypotension, unspecified; R42 Dizziness and giddiness; E11.9 Type 2 diabetes mellitus without complications; I25.10 Atherosclerotic heart disease of native coronary artery without angina pectoris; I10 Essential (primary) hypertension; E78.5 Hyperlipidemia, unspecified; I25.2 Old myocardial infarction; Z79.899 Other long term (current) drug therapy; Z79.01 Long term (current) use of anticoagulants; Z79.82 Long term (current) use of aspirin; Z79.84 Long term (current) use of oral hypoglycemic drugs
CPT/HCPCS: J7030

== ENCOUNTER 2021-10-15 15:03 | Inpatient (IN) | payer MEDICARE, BC ==
[~2021-10-15] VITALS: Ht 167.6 cm; Wt 125.0 kg
[2021-10-15 16:25] LABS: BASO % 0.3 % (0.0-2.0); GRAN # 4.8 K/mm3 (1.4-6.5); GRAN % 75.5 % (42.2-75.2); HEMATOCRIT 40.6 % (42.0-52.0); HEMOGLOBIN 13.4 g/dl (13.5-18.0); LYMPH % 15.6 % (20.0-51.0); MEAN CELL VOLUME 91 fl (80.0-100.0); MEAN CORPUSCULAR HEMOGLOBIN 30 pg (27-31); MEAN CORPUSCULAR HGB CONC 33 g/dl (33.0-37.0); MEAN PLATELET VOLUME 11.2 fl (7.4-10.4); MONO # 0.5 K/mm3 (0.1-0.6); MONO % 7.2 % (1.7-9.3); PLATELET COUNT 270 K/mm3 (130-400); RED BLOOD COUNT 4.47 M/mm3 (4.20-5.60); REDCELL DISTRIBUTION WIDTH-CV 14.9 % (11.5-14.5)
[2021-10-15 16:41] LABS: INR 1.8 (0.8-3.0); PROTHROMBIN TIME 20.4 SECONDS (9.7-12.8)
[2021-10-15 16:43] LABS: PARTIAL THROMBOPLASTIN TIME 35.2 SECONDS (26.0-37.0)
[2021-10-15 16:46] LABS: ALBUMIN 3.2 gm/dL (3.4-4.8); BILIRUBIN,TOTAL 0.5 mg/dL (0.2-1.2); C-REACTIVE PROTEIN 10.01 mg/dL (0.00-0.50); CALCIUM 8.7 mg/dL (8.4-10.2); CREATININE, serum 2.05 mg/dL (0.72-1.25); MAGNESIUM 1.9 mg/dL (1.6-2.6); POTASSIUM 4.3 mmol/L (3.5-4.5); TOTAL PROTEIN 7.5 gm/dL (6.2-8.1)
[2021-10-15 17:06] LABS: THYROID STIMULATING HORMONE 2.447 uIU/mL (0.350-4.940); TROPONIN-I 0.033 ng/mL (0.00-0.033)
[2021-10-15 20:00] VITALS: BP 136/77; PULSE 80; TEMP 99.1
[2021-10-15] MEDS ORDERED: DITROPAN 5MG TAB5 MG PO (20:48)
[2021-10-15] MEDS ORDERED: CARDIZEM CD 12120 MG PO (20:52)
[2021-10-15] MEDS ORDERED: MEGACE 40MG40 MG/TAB PO (20:53)
--- NOTE | 2021-10-15 23:16 | NUR ---
THIS NURSE RECEIVED REPORT FROM ANTHONY LUU, PT ON FLOOR PRIOR TO START OF SHIFT. PT TRANSFERRED TO ROOM 306 FROM ED. PT A/OX4, VSS, 02 ROOM AIR, N/S INFUSING AT 75CC/HR TO ROYAL IV. ASSESMENT COMPLETE. PT REQUIRES ASSITANCE OF 1-2 PT IS VERY STIFF AND WEAK. MED REC COMPLETED WITH PT. PT HAS OWN PERSONAL MEDICATIONS IN ROOM. THIS NURSE EDUCATED PT ON IMPORTANCE OF UTILIZING HOSPITAL SUPPLY AND TO REFRAIN FROM PERSONAL USE UNLESS OTHERWISE DIRECTED. PT VERBALIZED UNDERSTANDING. PT ORIENTED TO FLOOR AND HOSPITAL POLICY. POC DISCUSEED WITH PT. PT VERBALIZES UDNERSTANDING. CONTACT &DROPLET PRECAUTIONS IN PLACE. URINAL AT BEDSIDE. UA REQUIRED. ALL NEEDS MET AT THIS TIME. CALL LIGHT WITHIN REACH.
[2021-10-16] VITALS (8 sets, daily range): BP systolic 89–145; BP diastolic 47–80; PULSE 66–89; TEMP 98.3–100.1
[2021-10-16 03:37] LABS: COLLECTION METHOD CLEAN CATCH
[2021-10-16 04:01] LABS: MUCOUS Present (NOT PRESENT); PH 5 (5-8); SQUAMOUS EPITHELIAL 0-2 /hpf (0-10); URINE APPEARANCE Hazy (CLEAR/HAZY); URINE BACTERIA None Seen /hpf (NONE SEEN); URINE BILIRUBIN Negative (NEGATIVE); URINE BLOOD 1+ (NEGATIVE); URINE COLOR Yellow (YELLOW); URINE GLUCOSE Negative (NEGATIVE); URINE KETONE Negative (NEGATIVE); URINE LEUKOCYTE ESTERASE Negative (NEGATIVE); URINE NITRATE Negative (NEGATIVE); URINE PROTEIN(semi-quant) 1+ (NEGATIVE); URINE RBC 0-2 /hpf (0-2); URINE UROBILINOGEN Negative (NEGATIVE)
[2021-10-16 06:25] LABS: HEMOGLOBIN 12.2 g/dl (13.5-18.0); MEAN CELL VOLUME 92 fl (80.0-100.0); MEAN CORPUSCULAR HEMOGLOBIN 30 pg (27-31); MEAN CORPUSCULAR HGB CONC 33 g/dl (33.0-37.0); MEAN PLATELET VOLUME 10.8 fl (7.4-10.4); PLATELET COUNT 247 K/mm3 (130-400); RED BLOOD COUNT 4.02 M/mm3 (4.20-5.60); REDCELL DISTRIBUTION WIDTH-CV 14.8 % (11.5-14.5)
--- NOTE | 2021-10-16 06:32 | NUR ---
PT REMAINS ON ROOM AIR, LOW GRADE FEVER THROUGH OUT NIGHT, BS STABLE. PT CHECKED AND CHANGED Q2. ALL NEEDS MET THIS SHIFT. CALL LIGHT WITHIN REACH.
[2021-10-16 06:39] LABS: ALBUMIN 2.7 gm/dL (3.4-4.8); CALCIUM 8.2 mg/dL (8.4-10.2); CREATININE, serum 1.67 mg/dL (0.72-1.25); MAGNESIUM 1.9 mg/dL (1.6-2.6); PHOSPHOROUS 2.4 mg/dL (2.3-4.7); POTASSIUM 3.8 mmol/L (3.5-4.5)
[2021-10-16 06:42] LABS: HEMATOCRIT 36.9 % (42.0-52.0)
--- NOTE | 2021-10-16 06:58 | NUR ---
PTS PERSONAL MEDICATION PLCED IN [facility] ROOM WITH NAME TAG. THIS NURSE RELAYED TO ONCOMING SHIFT.
[2021-10-16 08:24] LABS: BAND 8 % (0-10); LYMPHOCYTE 11 % (20.0-51.0); NEUTROPHILS 76 % (42.0-75.2); PLATELET ESTIMATE NORMAL (NORMAL)
--- NOTE | 2021-10-16 16:23 | NUR ---
Calender Let Off Operator attempted to contact patient by phone twice with no response. SW also contacted patient's , Stefany and patient's son, Elliott and left messages. SW will continue to follow up tomorrow.
--- NOTE | 2021-10-16 18:53 | NUR ---
Patient has had an uneventful day. Currently on RA. Denies any pain, discomfort, SOA, or further needs at this time. VSS. Patient A&O. Patient has remained in bed the majority of the day. Is very unsteady on his feet. Patient repositioned Q2. Fall percautions in place. Call light in reach.
[2021-10-17] VITALS (10 sets, daily range): BP systolic 93–139; BP diastolic 54–73; PULSE 68–86; TEMP 98.2–100.6
[2021-10-17 06:36] LABS: BASO % 0.1 % (0.0-2.0); GRAN # 5.6 K/mm3 (1.4-6.5); GRAN % 78.3 % (42.2-75.2); HEMOGLOBIN 11.7 g/dl (13.5-18.0); LYMPH # 0.9 K/mm3 (1.2-3.4); LYMPH % 12.4 % (20.0-51.0); MEAN CELL VOLUME 92 fl (80.0-100.0); MEAN CORPUSCULAR HEMOGLOBIN 30 pg (27-31); MEAN CORPUSCULAR HGB CONC 33 g/dl (33.0-37.0); MONO # 0.6 K/mm3 (0.1-0.6); MONO % 8.1 % (1.7-9.3); PLATELET COUNT 263 K/mm3 (130-400); REDCELL DISTRIBUTION WIDTH-CV 14.8 % (11.5-14.5)
[2021-10-17 06:54] LABS: HEMATOCRIT 35.9 % (42.0-52.0)
[2021-10-17 06:57] LABS: ALBUMIN 2.6 gm/dL (3.4-4.8); CALCIUM 8.5 mg/dL (8.4-10.2); CREATININE, serum 1.6 mg/dL (0.72-1.25); MAGNESIUM 1.9 mg/dL (1.6-2.6); PHOSPHOROUS 2.6 mg/dL (2.3-4.7); POTASSIUM 3.9 mmol/L (3.5-4.5)
--- NOTE | 2021-10-17 11:45 | NUR ---
Scheduled medications given. Shift assessment performed. Patient drowsy but oriented. Not requiring any O2 at this time. Blood pressure this AM was in the 90's/50's, provider contacted, amlodopine put on hold. All other VSS. Patient in a foul mood and has refused PT/OT. Orthostatic BP ordered, patient refused. Will attempt at a later time. janitorial tech notified that Echo needed to be performed, tech stated that they will try to fit it in. Patient denies any pain, discomfort, SOA, or further needs at this time. Call light in reach. Fall percautions in place.
--- NOTE | 2021-10-17 12:45 | NUR ---
Shovel Handle Assembler made contact with patient's , Trisha (ph#[phone]) to discuss discharge planning. Patient lives in [place] with his and sees Dr. Damon for primary care. Patient uses a cane/walker for ambulation and Trisha reports difficulty with ADLS the last few days. Patient has Advance Directives in EMR which designate patient's , Trisha and son, Elliott. Trisha advised she does not feel she can care for patient at home at this time. Trisha would like a referral sent to [facility] as they have been working with [facility]. SW contacted Sarah and faxed referral. Discharge Plan: [facility]
[2021-10-17] MEDS ORDERED: CORDARONE200 MG/TAB PO (13:26)
[2021-10-18 04:00] VITALS: BP 137/66; PULSE 73; TEMP 98
--- NOTE | 2021-10-18 05:02 | NUR ---
NO NEW ISSUES NOTED OR REPORTED BY PATIENT THROUGHOUT THE SHIFT. PATIENT CALM AND COOPERATIVE THROUGHOUT THE NIGHT.
[2021-10-18 07:27] LABS: BASO % 0.3 % (0.0-2.0); GRAN # 6.8 K/mm3 (1.4-6.5); GRAN % 85.4 % (42.2-75.2); HEMOGLOBIN 11.3 g/dl (13.5-18.0); LYMPH # 0.7 K/mm3 (1.2-3.4); LYMPH % 9.3 % (20.0-51.0); MEAN CELL VOLUME 91 fl (80.0-100.0); MEAN CORPUSCULAR HEMOGLOBIN 30 pg (27-31); MEAN CORPUSCULAR HGB CONC 33 g/dl (33.0-37.0); MEAN PLATELET VOLUME 11.3 fl (7.4-10.4); MONO # 0.3 K/mm3 (0.1-0.6); MONO % 3.9 % (1.7-9.3); PLATELET COUNT 225 K/mm3 (130-400); REDCELL DISTRIBUTION WIDTH-CV 14.9 % (11.5-14.5)
[2021-10-18 07:34] LABS: HEMATOCRIT 34.4 % (42.0-52.0)
[2021-10-18 07:49] LABS: ALBUMIN 2.3 gm/dL (3.4-4.8); CREATININE, serum 1.55 mg/dL (0.72-1.25); PHOSPHOROUS 2.5 mg/dL (2.3-4.7); POTASSIUM 4.2 mmol/L (3.5-4.5)
[2021-10-18 08:12] VITALS: BP 124/57; PULSE 74; TEMP 99
[2021-10-18 12:35] VITALS: BP 113/63; PULSE 72; TEMP 98.5
--- NOTE | 2021-10-18 14:44 | NUR ---
PT LAYING IN BED RESTING ON ROOM AIR. PT STATES THAT HE IS NOT HAVING ANY PAIN, "I AM COMFORTABLE." PT STATES THAT HE DOES NOT NEED ANYTHING. CALL LIGHT IS WITHIN REACH.
--- NOTE | 2021-10-18 14:50 | NUR ---
RADIOLOGY CALLED AND INFORMED OF PORTABLE CHEST XRAY. STATES "OK, I SEEN IT, ILL BE UP THERE IN A MINUTE."
--- NOTE | 2021-10-18 15:02 | NUR ---
FLUIDS WERE DISCONTINUE AND IV WAS LOCKED. XRAY AT BEDSIDE.
--- NOTE | 2021-10-18 15:48 | NUR ---
SW informed patient did not have a clinical need to remain at facility and is currently in observation. SW informed that patient stated that he was going to a facility. SW called spouse Trisha [phone] to inform of information. Spouse asked SW what the facility was going to do with patient due to her also having COVID and being unable to care for patient. SW informed spouse that per physician patient does not have a clinical need to remain in facility. SW asked spouse if she could reach out to family to assist with a ride for patient when discharged. SW later informed by spouse that she would be having her son clam picker patient at discharge. SW will contiue to follow.
[2021-10-18 15:59] VITALS: BP 134/69; PULSE 74; TEMP 99.1
--- NOTE | 2021-10-18 16:03 | NUR ---
PT ON ROOM AIR. OXYGEN LEVEL IS 87-89%. CALLED RT AND ASKED IF THIS WAS NORMAL FOR PT. RT STATES THAT THE PT WAS "NOT ON THEIR LIST." PT IS NOT SHOWING ANY SIGNS OF SOB AND PT STATES THAT HE IS NOT HAVING A HARD TIME BREATHING. RT ADVISED TO PUT 3L VIA NC ON. THIS WAS PLACED ON PT AND LEVELS CAME UP TO 92%. PT STATES NO PAIN AT THIS TIME. PT STATES NO OTHER NEEDS. CALL LIGHT IS WTIHIN REACH.
--- NOTE | 2021-10-18 16:29 | NUR ---
Please see 10/18/21 Note. Spouse informed son will be picking up patient 10/19/2021 after the lunch hour. When/if patient dc's please fax DC order to [facility], patient and family choice. SW will continue to follow.
--- NOTE | 2021-10-18 18:48 | NUR ---
PT STATES THAT HE DOES NOT WANT TO EAT ANY DINNER. TRAY WAS REMOVED. 3 LIT VIA NC. PT OS AT 92%. HELPED PT TO MOVE UP IN BED AND REPOSITIION. PT STATES THAT HE DOES NOT NEED ANYTHING AT THIS TIME. PT STATES NO PAIN AT THIS TIME. CALL LIGHT IS WITHIN REACH.
[2021-10-18 19:58] VITALS: BP 136/70; PULSE 78; TEMP 100
[2021-10-19] VITALS (7 sets, daily range): BP systolic 110–1137; BP diastolic 49–73; PULSE 64–78; TEMP 97.3–99.2
--- NOTE | 2021-10-19 06:00 | NUR ---
ASSESSMENT COMPLETE FOR THIS SHIFT. PT RESTING IN BED SLEEPING. PT DENIED PAIN, PALPITATIONS, N,V,D, SOB OR DIZZINESS. PT'S O2 SATS CONTINUE TO DROP TO 87% TO 89%, IF NOT PROMPTED TO DEEP BREATH THROUGH HIS NOSE (PT IS A MOUTH BREATHER). PT HAD AN OTHERWISE UNEVENTFUL NIGHT THIS SHIFT. PT EXPRESSED NO OTHER NEEDS AT THIS TIME. CALL LIGHT WITHIN REACH.
--- NOTE | 2021-10-19 07:00 | NUR ---
PT HAD SEVERAL EPISODES OF INCONTINENCE THIS SHIFT. PT CLEANED UP ANOTHER EACH EPISODE. PT CLEAN AND DRY FOR ON COMING SHIFT. PT EXPRESSED NO OTHER NEEDS AT THIS TIME. CALL LIGHT WITHIN REACH.
[2021-10-19 07:08] LABS: BASO % 0.1 % (0.0-2.0); EOS % 0.1 % (0.0-4.0); LYMPH # 0.8 K/mm3 (1.2-3.4); LYMPH % 10.7 % (20.0-51.0); MEAN CELL VOLUME 93 fl (80.0-100.0); MEAN CORPUSCULAR HEMOGLOBIN 31 pg (27-31); MEAN CORPUSCULAR HGB CONC 33 g/dl (33.0-37.0); MEAN PLATELET VOLUME 10.9 fl (7.4-10.4); MONO # 0.4 K/mm3 (0.1-0.6); MONO % 4.9 % (1.7-9.3); PLATELET COUNT 246 K/mm3 (130-400); RED BLOOD COUNT 3.59 M/mm3 (4.20-5.60); REDCELL DISTRIBUTION WIDTH-CV 14.7 % (11.5-14.5)
[2021-10-19 07:16] LABS: HEMATOCRIT 33.2 % (42.0-52.0)
[2021-10-19 07:32] LABS: ALBUMIN 2.3 gm/dL (3.4-4.8); CALCIUM 7.9 mg/dL (8.4-10.2); CREATININE, serum 1.4 mg/dL (0.72-1.25); MAGNESIUM 1.8 mg/dL (1.6-2.6); PHOSPHOROUS 2.9 mg/dL (2.3-4.7); POTASSIUM 3.9 mmol/L (3.5-4.5)
--- NOTE | 2021-10-19 09:46 | NUR ---
PT SITTING UP IN BED ON WITH 5LIT VIA NC ON. PT STATES THAT HE IS NOT HAVING ANY SOB OR PAIN AT THIS TIME. PT REPOSITIONED IN BED SO THAT HE COULD SIT UP AND EAT BREAKFAST. PT STATES THAT HE DOES NOT HAVE ANY OTHER NEEDS AT THIS TIME. CALL LIGHT IS WITHIN REACH.
--- NOTE | 2021-10-19 11:58 | NUR ---
CALLED PTS , TRINITY. INFORMED HER THAT PT NOW HAS COVID PNEUMONIA PER DR. TIRADO. PT IS REQUIRING OXYGEN NOW AND IS GOING TO BE STARTED ON SOME COVID MEDICATIONS. INFORMED HER THAT HE WILL BE HERE FOR A LITTLE WHILE LONGER TO GET THE MEDICAITONS AND THEN THEY WILL BE ABLE TO LOOK FOR PLACEMENT. VOICED UNDERSTANDING. ALL QUESTIONS WERE ANSWERED.
--- NOTE | 2021-10-19 18:15 | NUR ---
PT MOVED BACK TO BED. PT STATES NO OTHER NEEDS AT THIS TIME. PT STATES NO PAIN. CALL LIGHT IS WITHIN REACH.
[2021-10-20 04:03] VITALS: BP 121/68; PULSE 73; TEMP 98.2
[2021-10-20 06:24] LABS: GRAN # 4.6 K/mm3 (1.4-6.5); HEMOGLOBIN 10.6 g/dl (13.5-18.0); LYMPH # 0.5 K/mm3 (1.2-3.4); LYMPH % 8.8 % (20.0-51.0); MEAN CELL VOLUME 92 fl (80.0-100.0); MEAN CORPUSCULAR HEMOGLOBIN 30 pg (27-31); MEAN CORPUSCULAR HGB CONC 33 g/dl (33.0-37.0); MEAN PLATELET VOLUME 11.2 fl (7.4-10.4); MONO # 0.2 K/mm3 (0.1-0.6); MONO % 4.1 % (1.7-9.3); PLATELET COUNT 274 K/mm3 (130-400); RED BLOOD COUNT 3.53 M/mm3 (4.20-5.60); REDCELL DISTRIBUTION WIDTH-CV 14.9 % (11.5-14.5)
[2021-10-20 06:30] LABS: HEMATOCRIT 32.4 % (42.0-52.0)
--- NOTE | 2021-10-20 06:30 | NUR ---
ASSESSMENT COMPLETE FOR THIS SHIFT. PT RESTING IN BED SLEEPING. PT DENIED PAIN, PALPITATIONS, N,V,D OR DIZZINESS. PT FEELS LIKE HE IS BREATHING BETTER TONIGHT AND I FEEL LIKE HIS LUNGS SOUND BETTER THEN THE NIGHT BEFORE. PT EXPRESSED NO OTHER NEEDS AT THIS TIME. CALL LIGHT WITHIN REACH.
[2021-10-20 06:52] LABS: ALBUMIN 2.3 gm/dL (3.4-4.8); C-REACTIVE PROTEIN 18.86 mg/dL (0.00-0.50); CREATININE, serum 1.57 mg/dL (0.72-1.25); MAGNESIUM 1.9 mg/dL (1.6-2.6); PHOSPHOROUS 3.5 mg/dL (2.3-4.7); POTASSIUM 4.4 mmol/L (3.5-4.5)
[2021-10-20 08:21] VITALS: BP 131/69; PULSE 82; TEMP 97.6
--- NOTE | 2021-10-20 09:34 | NUR ---
Patient is to be on chemotherapy precautions for use of Megestrol (Megace) for 7 days after last administration. Per current med rec, last dose was 10/14. Precautions could end 10/21 unless medications is restarted. Precautions should include double chemo tested gloves for handling urine and feces.
--- NOTE | 2021-10-20 09:41 | NUR ---
Patient is to be on chemotherapy precautions for use of Megestrol (Megace) for 7 days after last administration. Per current med rec, last dose was 10/14. Precautions could end 10/21 unless medications is restarted. Precautions should include gown and chemo tested gloves for handling urine and feces.
[2021-10-20 11:01] VITALS: BP 103/62; PULSE 91; TEMP 97.4
--- NOTE | 2021-10-20 11:50 | NUR ---
PT SITTING UP IN BED USING INCENTIVE SPIROMETER. PT STATES THAT HE IS NOT HAVING ANY PAIN AT THIS TIME. PT STATES THAT HE HAS NO OTHER NEEDS AT THIS TIME. 5L VIA NC ON. CALL LIGHT IS WITHIN REACH.
--- NOTE | 2021-10-20 12:56 | NUR ---
Patient was upgraded to inpatient status over the weekend. DANIELA contacted Sarah at [facility] and faxed clinical updates. Sarah advised that they can tentatively accept pending any major clinical changes or change in bed availability. Discharge Plan: [facility]
[2021-10-20 16:15] VITALS: BP 124/69; PULSE 67; TEMP 97.8
--- NOTE | 2021-10-20 19:03 | NUR ---
PT LAYING IN BED. STATES THAT HE IS WET. ASSITED TO THE BATHROOM AND TO GET CLEANED UP. ASSISTED PT BACK TO BED. PT STATES NO OTHER NEEDS AT THIS TIME. PT STATES BACK IS "FEELING BETTER." CALL LIGHT IS WITHIN REACH.
[2021-10-20 20:12] VITALS: BP 106/42; PULSE 67; TEMP 97.5
[2021-10-21 00:22] VITALS: BP 137/64; PULSE 77; TEMP 97.4
[2021-10-21 03:42] VITALS: BP 118/50; PULSE 76; TEMP 97.6
--- NOTE | 2021-10-21 06:15 | NUR ---
ASSESSMENT COMPLETE FOR THIS SHIFT. PT RESTING IN BED NAPPING. PT DENIED PAIN, PALPITATIONS, N,V,D, SOB OR DIZZINESS. PT KEEP REMOVING HIS TELLE ALL NIGHT AND I HAD TO KEEP PUTTING IT BACK ON. PT WANTED TO KNOW WHY "THEY" COULDN'T JUST VIEW HIS LOOP-RECORDER. HOSPITALIST CALLED AROUND [id number]. PERMISSION GIVEN TO TAKE PT OFF TELLE FOR A WHILE. PT EXPRESSED NO OTHER NEEDS AT THIS TIME. CALL LIGHT WITHIN REACH.
--- NOTE | 2021-10-21 07:42 | NUR ---
PT LAYING IN BED. NO NEEDS VOICED AT THIS TIME. 4LIT VIA NC ON. PT STATES THAT HE IS NOT HVING ANY PAIN. CALL LIGHT IS WTIHIN REACH.
[2021-10-21 07:45] LABS: HEMOGLOBIN 10.4 g/dl (13.5-18.0); MEAN CELL VOLUME 90 fl (80.0-100.0); MEAN CORPUSCULAR HEMOGLOBIN 30 pg (27-31); MEAN CORPUSCULAR HGB CONC 34 g/dl (33.0-37.0); MEAN PLATELET VOLUME 10.9 fl (7.4-10.4); PLATELET COUNT 350 K/mm3 (130-400); RED BLOOD COUNT 3.43 M/mm3 (4.20-5.60)
[2021-10-21 08:00] LABS: CREATININE, serum 2.16 mg/dL (0.72-1.25); POTASSIUM 4.1 mmol/L (3.5-4.5)
[2021-10-21 08:32] LABS: BAND 5 % (0-10); BURR CELLS 1+; LYMPHOCYTE 3 % (20.0-51.0); NEUTROPHILS 89 % (42.0-75.2)
[2021-10-21 08:33] LABS: OVALOCYTES 1+; PLATELET ESTIMATE NORMAL (NORMAL)
[2021-10-21 09:34] VITALS: BP 128/72; PULSE 92; TEMP 98.2
[2021-10-21 12:25] VITALS: BP 135/73; PULSE 76; TEMP 98.2
--- NOTE | 2021-10-21 12:32 | NUR ---
Entry Level Project Coordinator faxed updates to Sarah at [facility]. SW also contacted patient's , Trisha and provided update. Trisha advised she is also sick with covid but is doing okay. Discharge Plan: [facility]
[2021-10-21 17:08] VITALS: BP 135/73; PULSE 67; TEMP 98
--- NOTE | 2021-10-21 18:25 | NUR ---
PT LAYING SUPINE IN BED. PT STATES THAT SHE WOULD LIKE TO HAVE HER BLANKET OVER HER FEET. HELPED PT REARRANGE A FEW THER THINGS. STATES NO OTHER NEEDS AT THIS TIME. CALL LIGHT IS WITHIN REACH.
--- NOTE | 2021-10-21 18:34 | NUR ---
PT STATES THAT HE SPILLED SOMETHING ON HIS GOWN AND IT WAS ALL WET. GOT PT NEW GOWN AND ASSISSTED HIM TO CHANGE IT. ALSO HELPED PT MOVE UP IN THE BED AND GET COMFORTABLE. PT STATES NO OTHER NEEDS OR PAIN AT THIS TIME. CALL LIGHT IS WITHIN REACH.
[2021-10-21 19:15] VITALS: BP 145/65; PULSE 81; TEMP 98.2
[2021-10-22 00:19] VITALS: BP 134/60; PULSE 73; TEMP 97.6
--- NOTE | 2021-10-22 02:24 | NUR ---
ASSESSMENT COMPLETE FOR THIS SHIFT. PT RESTING IN BED SLEEPING. PT DENIED PAIN, PALPITATIONS, N,V,D, OR DIZZINESS. PT COMPLAINED OF SOME SOB WITH AMBULATION. PT CONTINUES WITH DIFFICULTY KEEPING HIS TELLE ON AT NIGHT AND WITH ROLLING ONTO HIS IV TUBING AND NOT KEEPING HIS ARM STRAIGHT SO THAT HIS IV FLUIDS CAN RUN WITHOUT CONSTANTLY STOPING. WILL CONTINUE TO MONITOR AND FIX NEEDED. PT EXPRESSED NO OTHER NEEDS AT THIS TIME. CALL LIGHT WITHIN REACH.
[2021-10-22 04:19] VITALS: BP 129/64; PULSE 78; TEMP 98.3
[2021-10-22 06:34] LABS: HEMOGLOBIN 11.1 g/dl (13.5-18.0); MEAN CELL VOLUME 90 fl (80.0-100.0); MEAN CORPUSCULAR HEMOGLOBIN 30 pg (27-31); MEAN CORPUSCULAR HGB CONC 34 g/dl (33.0-37.0); MEAN PLATELET VOLUME 10.9 fl (7.4-10.4); PLATELET COUNT 369 K/mm3 (130-400); RED BLOOD COUNT 3.67 M/mm3 (4.20-5.60); REDCELL DISTRIBUTION WIDTH-CV 14.8 % (11.5-14.5)
[2021-10-22 06:46] LABS: C-REACTIVE PROTEIN 6.4 mg/dL (0.00-0.50); CALCIUM 8.4 mg/dL (8.4-10.2); CREATININE, serum 1.87 mg/dL (0.72-1.25); MAGNESIUM 1.9 mg/dL (1.6-2.6); POTASSIUM 4.2 mmol/L (3.5-4.5)
[2021-10-22 06:47] LABS: HEMATOCRIT 32.9 % (42.0-52.0)
[2021-10-22 08:00] VITALS: BP 154/85; PULSE 78; TEMP 98.2
[2021-10-22 08:31] LABS: BAND 3 % (0-10); LYMPHOCYTE 5 % (20.0-51.0); PLATELET ESTIMATE NORMAL (NORMAL)
[2021-10-22 08:33] LABS: NEUTROPHILS 90 % (42.0-75.2)
--- NOTE | 2021-10-22 09:29 | NUR ---
Patient sitting in recliner upon entering the room. Does not have any complaints/concerns at this time. Patient denies any pain. Patient is a 1x assist w/ a walker. PT worked with the patient this morning.
[2021-10-22 12:41] VITALS: BP 130/70; PULSE 83; TEMP 97.5
--- NOTE | 2021-10-22 14:30 | NUR ---
Sales Engineering Manager faxed clinical updates to Sarah at [facility].
[2021-10-22 16:30] VITALS: BP 148/75; PULSE 64; TEMP 98.1
--- NOTE | 2021-10-22 18:26 | NUR ---
Patient has had an uneventful day. Has not expressed any complaints/concerns, has been resting in the recliner and bed.
[2021-10-22 20:22] VITALS: BP 147/62; PULSE 69; TEMP 98.1
--- NOTE | 2021-10-22 20:50 | NUR ---
Patient is resting in bed, alert and oriented x 4, VSS, Receiving 1/2 NS AT 60 ML/HR. Telemetry in place, NSR. 3L O2 NC. Assessment completed, medications provided. No other needs at this time. Call light within reach.
[2021-10-23 00:21] VITALS: BP 160/65; PULSE 62; TEMP 97.5
[2021-10-23 04:33] VITALS: BP 160/73; PULSE 74; TEMP 98.1
--- NOTE | 2021-10-23 06:30 | NUR ---
Patient currently at 3L O2. Continue receiving 1/2 NS intermitently since continue folding his arm. SBP 130-160. Report will be given to day RN.
[2021-10-23 07:54] LABS: HEMOGLOBIN 10.4 g/dl (13.5-18.0); MEAN CELL VOLUME 90 fl (80.0-100.0); MEAN CORPUSCULAR HEMOGLOBIN 30 pg (27-31); MEAN CORPUSCULAR HGB CONC 34 g/dl (33.0-37.0); MEAN PLATELET VOLUME 11.2 fl (7.4-10.4); PLATELET COUNT 382 K/mm3 (130-400); RED BLOOD COUNT 3.45 M/mm3 (4.20-5.60); REDCELL DISTRIBUTION WIDTH-CV 15.3 % (11.5-14.5)
[2021-10-23 08:15] LABS: CREATININE, serum 1.81 mg/dL (0.72-1.25); POTASSIUM 4.4 mmol/L (3.5-4.5)
[2021-10-23 09:20] VITALS: BP 138/72; PULSE 81; TEMP 98.2
[2021-10-23 09:41] LABS: BAND 4 % (0-10); LYMPHOCYTE 4 % (20.0-51.0); METAMYELOCYTE 4 % (0-0); MYELOCYTE 1 % (0-0); NEUTROPHILS 83 % (42.0-75.2); OVALOCYTES 1+; PLATELET ESTIMATE NORMAL (NORMAL); SCHISTOCYTES 1+
--- NOTE | 2021-10-23 10:47 | NUR ---
PT SITTING UP IN BED. MORNING MEDICATIONS GIVEN. SHIFT ASSESSMENT COMPLETED. PT DENIES ANY PAIN OR NEEDS AT THIS TIME. REQUIRING 7L VIA NC AT THIS TIME. IV FLUIDS D/C. WILL CONTINUE TO MONITOR.
[2021-10-23 11:15] VITALS: BP 121/60; PULSE 72; TEMP 97.9
--- NOTE | 2021-10-23 13:39 | NUR ---
DANIELA faxed updates to Sarah at [facility].
[2021-10-23 16:20] VITALS: BP 128/60; PULSE 67; TEMP 98.1
--- NOTE | 2021-10-23 19:50 | NUR ---
Patient is watching TV on the chair, alert and oriented x 4. Asked for assistance to get into bed. Used walker witho no problems. Telemetry in place, NSR, 8L O2 NC. Assessment completed, medications provided. No other needs at this time. Call light within reach.
[2021-10-23 20:15] VITALS: BP 157/61; PULSE 62; TEMP 98.7
[2021-10-24] VITALS (8 sets, daily range): BP systolic 105–155; BP diastolic 62–95; PULSE 61–83; TEMP 97.6–100.1
--- NOTE | 2021-10-24 06:21 | NUR ---
Patient has had a calm night. Right now at 7L O2 NC. Report will be given to day RN
[2021-10-24 07:59] LABS: HEMOGLOBIN 10.5 g/dl (13.5-18.0); MEAN CELL VOLUME 89 fl (80.0-100.0); MEAN CORPUSCULAR HEMOGLOBIN 30 pg (27-31); MEAN CORPUSCULAR HGB CONC 34 g/dl (33.0-37.0); MEAN PLATELET VOLUME 11.2 fl (7.4-10.4); PLATELET COUNT 418 K/mm3 (130-400); REDCELL DISTRIBUTION WIDTH-CV 15.2 % (11.5-14.5)
[2021-10-24 08:04] LABS: HEMATOCRIT 31.2 % (42.0-52.0)
[2021-10-24 08:06] LABS: CALCIUM 8.2 mg/dL (8.4-10.2); CREATININE, serum 1.7 mg/dL (0.72-1.25); POTASSIUM 4.5 mmol/L (3.5-4.5)
[2021-10-24 08:51] LABS: BAND 3 % (0-10); LYMPHOCYTE 9 % (20.0-51.0); METAMYELOCYTE 1 % (0-0); MYELOCYTE 1 % (0-0); NEUTROPHILS 85 % (42.0-75.2)
[2021-10-24 08:53] LABS: ANISOCYTOSIS 1+; OVALOCYTES 1+
[2021-10-24 08:54] LABS: TEAR DROP CELLS 1+
--- NOTE | 2021-10-24 10:09 | NUR ---
PT SITTING UP IN RECLINER. MORNING MEDICATIONS GIVEN. SHIFT ASSESSMENT COMPLETED. DENIES ANY PAIN OR NEEDS AT THIS TIME. CHAIR ALARMS IN PLACE. WILL CONTINUE TO MONITOR.
--- NOTE | 2021-10-24 14:23 | NUR ---
Customer Service Technician faxed clinical updates to Sarah at [facility]. SW also attempted to contact patient's , Trisha and left a message. Patient currently on 9 liters of oxygen.
--- NOTE | 2021-10-24 15:37 | NUR ---
SPOKE WITH PT'S SON, JAIMEE, ON THE PHONE. JAIMEE INFORMED THIS RN THAT IVERMECTIM SHOULD BE GIVEN TO PT AND HE'S SPOKEN TO "HOSPITAL ADMINISTRATORS" AT [facility] THAT STATE THE PT SHOULD BE ABLE TO RECIEVE IT. THIS RN NOTIFIED JAIMEE THAT I DIDN'T BELIEVE WE GAVE THAT MEDICATION IN THE HOSPITAL BUT WOULD INFORM THE PHYSICIAN. JAIMEE STATED THAT IF WE DID NOT AND SOMETHING HAPPENED TO HIS FATHER WHILE HERE, HE WOULD PURSUE ACTIONS AGAINST EVERY EMPLOYEE THAT CARED FOR HIS FATHER DURING HIS STAY. THIS RN CONTACTED MARK MARCELO AND NOTIFIED OF THE SITUATION.
[2021-10-25 03:28] VITALS: BP 141/55; PULSE 67; TEMP 97.3; TEMP 973.7
--- NOTE | 2021-10-25 05:34 | NUR ---
pt requiring 9L O2 per [facility]NC this shift. voiding per urinal, BGM 303 last evening, gave 8 units of SS. pt alert, oriented, up in room with assist of 1, no c/o pain or discomfort.
[2021-10-25 08:11] VITALS: BP 132/76; PULSE 74; TEMP 98.9
--- NOTE | 2021-10-25 10:23 | NUR ---
PT ALERT, DROWSY IN ROOM. VERBAL CUES NEEDED TO BEGIN MEDICATION PASS AND ASSESSMENT. PT EXPRESSED FRUSTRATION WITH BREAKFAST TRAY NOT COMING, RECHECKED AND BREAKFAST TRAY BROUGHT IN. PT EXPRESSED FRUSTRATION WITH BEING LEFT IN CHAIR YESTERDAY, REFUSED PT SERVICES THIS MORNING. PT DID NOT WANT TO MOVE FOR COCCYX ASSESSMENT, PT STATES BACK HURTS, BOTTOM DOES NOT. WILL TRY AT LATER TIME IF PT ALLOWS. ASSESSMENT COMPLETED TO BEST OF ABILITY. PT CALL LIGHT WITHIN REACH, MEDICATIONS GIVEN PER ORDERS.
[2021-10-25 11:53] VITALS: BP 139/68; PULSE 78; TEMP 97.8
--- NOTE | 2021-10-25 15:13 | NUR ---
COCCYX ASSESSMENT PERFORMED WITH PT AMBULATION TO BATHROOM, ASSESSMENT UPDATED.
[2021-10-25 15:14] VITALS: BP 144/62; PULSE 82; TEMP 97.6
--- NOTE | 2021-10-25 15:21 | NUR ---
PT AMBULATED TO BATHROOM, UPON RETURNING TO BED SOA NOTED. SPO2 DOWN TO 78%, APPROXIMATELY 4 MINUTES TO RETURN TO 92% AT BEDSIDE. NOTIFIED RT, WILL CONTINUE TO MONITOR SPO2 WITH AMBULATION TO BATHROOM WITH SIMPLE MASK.
--- NOTE | 2021-10-25 18:38 | NUR ---
PT CONTINUING ON PLAN OF CARE, NOW AT 6L HIGH FLOW CANNULA. SOME DESATURATION NOTED WITH EXERTION, DISCUSSED PLAN WITH RESPIRATORY THERAPY FOR FUTURE AMBULATION TO RESTROOM. PT RECEIVED MEDICATIONS PER ORDERS, NO SIGNIFICANT CHANGES NOTED IN PT STATUS. PT CALL LIGHT WITHIN REACH.
[2021-10-25 19:16] VITALS: BP 148/63; PULSE 65; TEMP 98
[2021-10-25 23:34] VITALS: BP 148/56; PULSE 65; TEMP 97.4
[2021-10-26] VITALS (8 sets, daily range): BP systolic 120–171; BP diastolic 64–99; PULSE 66–90; TEMP 98.1–99.6
[2021-10-26 07:31] LABS: CALCIUM 8.3 mg/dL (8.4-10.2); CREATININE, serum 1.7 mg/dL (0.72-1.25); POTASSIUM 4.6 mmol/L (3.5-4.5)
[2021-10-26 07:40] LABS: HEMOGLOBIN 10.7 g/dl (13.5-18.0); MEAN CELL VOLUME 92 fl (80.0-100.0); MEAN CORPUSCULAR HEMOGLOBIN 30 pg (27-31); MEAN CORPUSCULAR HGB CONC 33 g/dl (33.0-37.0); MEAN PLATELET VOLUME 11.4 fl (7.4-10.4); PLATELET COUNT 466 K/mm3 (130-400); RED BLOOD COUNT 3.55 M/mm3 (4.20-5.60); REDCELL DISTRIBUTION WIDTH-CV 15.4 % (11.5-14.5)
[2021-10-26 07:43] LABS: HEMATOCRIT 32.8 % (42.0-52.0)
[2021-10-26 09:04] LABS: ANISOCYTOSIS 1+; HYPOCHROMIA 1+; LYMPHOCYTE 7 % (20.0-51.0); NEUTROPHILS 91 % (42.0-75.2); PLATELET ESTIMATE INCREASED (NORMAL)
--- NOTE | 2021-10-26 15:07 | NUR ---
PT LAYING SUPINE IN BED. PT STATES NO NEEDS AT THIS TIME. PT STATES NO PAIN AT THIS TIME. CALL LIGHT IS WITHIN REACH.
--- NOTE | 2021-10-26 18:47 | NUR ---
PT LAYING SUPINE IN BED. 7LIT VIA HIGH FLOW NC IS ON. PT ORDERED FRUIT CUP FROM KITCHEN, WAS GIVEN TO PT. PT STATES HE WOULD LIKE THE LIGHTS TURNED OFF. PT STATES NO OTHER NEEDS AT THIS TIME. PT STATES NO PAIN. CALL LIGHT IS WITHIN REACH.
[2021-10-27 04:12] VITALS: BP 152/72; PULSE 76; TEMP 97.9
[2021-10-27 06:46] LABS: HEMOGLOBIN 10.4 g/dl (13.5-18.0); MEAN CELL VOLUME 90 fl (80.0-100.0); MEAN CORPUSCULAR HEMOGLOBIN 30 pg (27-31); MEAN CORPUSCULAR HGB CONC 34 g/dl (33.0-37.0); MEAN PLATELET VOLUME 11.1 fl (7.4-10.4); PLATELET COUNT 455 K/mm3 (130-400); RED BLOOD COUNT 3.44 M/mm3 (4.20-5.60); REDCELL DISTRIBUTION WIDTH-CV 15.3 % (11.5-14.5)
[2021-10-27 07:01] LABS: CALCIUM 8.7 mg/dL (8.4-10.2); CREATININE, serum 1.85 mg/dL (0.72-1.25)
--- NOTE | 2021-10-27 07:02 | NUR ---
pt on 7L O2 per HFNC this shift, BGMs requiring SS. no c/o pain or discomfort.
--- NOTE | 2021-10-27 07:50 | NUR ---
PT LAYING SUPINE IN BED ON 7LIT VIA HIGHFLOW NC. PT STATES THAT HE NEEDS TO USE THE URINAL. ASSISTED PT TO USE IT. PT STATES NO OTHER NEEDS AT THIS TIME. PT STATES HE IS NOT HAVING ANY PAIN. CALL LIGHT IS WITHIN REACH.
[2021-10-27 07:54] LABS: LYMPHOCYTE 11 % (20.0-51.0); NEUTROPHILS 87 % (42.0-75.2); PLATELET ESTIMATE INCREASED (NORMAL)
[2021-10-27 08:21] VITALS: BP 157/64; PULSE 76; TEMP 98.5
--- NOTE | 2021-10-27 11:06 | NUR ---
The patient remains on 7 liters of oxygen. The hospitalist would like the patient evaluated by [facility]. DANIELA contacted and faxed a referral to Nirmal at [facility]. Awaiting screen. DANIELA faxed updates to Sarah at [facility].
[2021-10-27 12:17] VITALS: BP 124/69; PULSE 70; TEMP 97.7
--- NOTE | 2021-10-27 15:48 | NUR ---
[facility] accepts patient. Nirmal reports that he will not have a bed open for another 1-2 days.
[2021-10-27 16:30] VITALS: BP 144/73; PULSE 66; TEMP 97.6
--- NOTE | 2021-10-27 18:27 | NUR ---
PT LAYING SUPINE IN BED. STATES THAT HIS BACK PAIN IS IMPROVED. "I CAN STILL FEEL IT THERE A LITTLE BUT IT IS BETTER." PT STATES HE WOULD LIKE HIS TRAY REMOVED. NO OTHER NEEDS STATED AT THIS TIME. CALL LIGHT IS WITHIN REACH.
[2021-10-27 19:25] VITALS: BP 133/86; PULSE 79; TEMP 98.3
[2021-10-27 23:11] VITALS: BP 147/77; PULSE 62; TEMP 97.9
[2021-10-28 03:26] VITALS: BP 158/70; PULSE 58; TEMP 97.9
--- NOTE | 2021-10-28 06:44 | NUR ---
PT on cpap during the noc, 40% fiO2, tolerated well, SS required @HS, started Levemir as well. using urinal with assistance, no c/o back pain this shift.
--- NOTE | 2021-10-28 08:15 | NUR ---
PT LAYING SUPINE IN BED ON 7LIT VIA HIGH777 [place] NC. PT STATES THAT HE DOES NOT NEEDS ANYTING AT THIS TIME. PT STATES THAT HE IS NOT HAVING ANY PAIN. CALL LIGHT IS WTIHIN REACH.
[2021-10-28 08:34] VITALS: BP 151/71; PULSE 64; TEMP 97.9
--- NOTE | 2021-10-28 11:29 | NUR ---
Nirmal, at [facility], reports that they have some discharges tomorrow and . The earliest they may be able to take the patient is tomorrow, 10/29. DANIELA contacted and updated the patient's , Trisha. Trisha is in agreement to the plan.
[2021-10-28 11:36] VITALS: BP 128/67; PULSE 80; TEMP 97.5
--- NOTE | 2021-10-28 15:21 | NUR ---
SPOKE WITH SHAHZAD ABOUT PT COMING OUT OF ISOLATION. SHE STATES "THAT LONG THE INFECTIOUS DISEASE NURSE WAS OK WITH HIM COMING OUT THEN THEY ARE WELL." CHARGE NURSE WAS NOTIFIED AND STATES THAT HE WILL TALK TO INFECTIOUS DISEASE AND HOUSE AND SEE IF THEY CAN FIND HIM A BED.
[2021-10-28 16:33] VITALS: BP 138/62; PULSE 66; TEMP 97.8
--- NOTE | 2021-10-28 18:49 | NUR ---
PT LAYING SUPINE IN BED. PT STATES THAT HE WOULD LIKE TO MOVE UP IN BED. HELPED PT TO REPOSITION IN BED. PT ALSO WANTED CURTAIN PULLED DOWN AND LIGHTS OFF. NO OTHER NEEDS STATED. PT STATES NO PAIN. CALL LIGHT IS WTIHIN REACH.
[2021-10-28 20:02] VITALS: BP 141/57; PULSE 64; TEMP 98
--- NOTE | 2021-10-28 21:50 | NUR ---
Patient is sleeping in bed, easily arousable. Alert and oriented x 4, VSS, denies pain, SOB. Right now at 7L NC. Denied the use of CPAP, states it is too noisy and do not let him sleep. Telemetry in place, NSR, [id number]. Assessment completed, medications provided. No other needs at this time. Call light within reach. Continue monitoring.
[2021-10-29 00:28] VITALS: BP 128/58; PULSE 61; TEMP 98.1
[2021-10-29 04:18] VITALS: BP 149/71; PULSE 65; TEMP 98
--- NOTE | 2021-10-29 05:13 | NUR ---
Patient continues with 7L O2. No major changes along the night. VSS. Report will be given to day RN.
[2021-10-29 06:22] LABS: HEMOGLOBIN 10.2 g/dl (13.5-18.0); MEAN CELL VOLUME 89 fl (80.0-100.0); MEAN CORPUSCULAR HEMOGLOBIN 30 pg (27-31); MEAN CORPUSCULAR HGB CONC 34 g/dl (33.0-37.0); MEAN PLATELET VOLUME 11.3 fl (7.4-10.4); PLATELET COUNT 420 K/mm3 (130-400); RED BLOOD COUNT 3.41 M/mm3 (4.20-5.60); REDCELL DISTRIBUTION WIDTH-CV 15.4 % (11.5-14.5)
[2021-10-29 06:24] LABS: HEMATOCRIT 30.3 % (42.0-52.0)
[2021-10-29 06:47] LABS: C-REACTIVE PROTEIN 0.55 mg/dL (0.00-0.50); CALCIUM 8.5 mg/dL (8.4-10.2); CREATININE, serum 1.78 mg/dL (0.72-1.25); POTASSIUM 4.9 mmol/L (3.5-4.5)
[2021-10-29 07:54] VITALS: BP 161/70; PULSE 69; TEMP 98.2
--- NOTE | 2021-10-29 09:26 | NUR ---
PT SITTING UP IN BED. MORNING MEDICATIONS GIVEN. SHIFT ASSESSMENT COMPLETED. PT CURRENTLY ON 6L OXYGEN VIA NC. DENIES ANY PAIN OR NEEDS. EAGER TO D/C. THIS RN NOTIFIED THAT TRANSPORTATION WILL BE HERE AT 1400. WILL CONTINUE TO MONITOR.
[2021-10-29] MEDS ORDERED: RT Albuterol HFA MDI IH ×2 (09:31)
[2021-10-29] MEDS ORDERED: TYLENOL 500MG500 MG PO (09:31)
[2021-10-29] MEDS ORDERED: NOVOLOG 100U100 U/M1 SQ (09:32)
[2021-10-29] MEDS ORDERED: NOVLOG SQ (09:34)
[2021-10-29] MEDS ORDERED: LEVEMIR FLEX100 U/ML SQ (09:34)
--- NOTE | 2021-10-29 09:49 | NUR ---
Nirmal, at [facility], reports that they have a bed and are able to accept the patient today. Accepting provider is Dr. Reed. DANIELA notified the clinical team. DANIELA updated the patient's , Trisha. The patient is to discharge today, 10/29, [facility] [place]. Transportation was scheduled at 1400, via [facility]. DANIELA informed the patient's RN, Nirmal at [facility], and the patient's , Trisha, of the transport time. Trisha also gave SW verbal consent to sign the EMS Consent Form on her behalf. No additional needs at this time.
[2021-10-29 11:12] VITALS: BP 148/76; PULSE 65; TEMP 97.9
--- NOTE | 2021-10-29 13:08 | NUR ---
ATTEMPTED TO CALL REPORT TO [facility], RN NOT AVAILABLE EITHER TIME. PROVIDED A CALL BACK NUMBER.
--- NOTE | 2021-10-29 13:48 | NUR ---
REPORT GIVEN TO ASHISH WATSON [facility] IN [place]. INSTRUCTED TO LEAVING IV IN PLACE. ALL QUESTIONS ANSWERED. WAITING FOR EMS TO ARRIVE [facility] TRANSPORTATION.
--- NOTE | 2021-10-29 14:11 | NUR ---
PT TAKEN DOWN BY EMS ON STRETCHER.
== END 2021-10-29 14:12 | disposition short-term general hospital (02) | DRG 177 ==
LOC: COL.ER 15:03 → MEDICAL 17:12
PROVIDERS: Emergency Medicine; Internal Medicine; Physician Assistant; Student in an Organized Health Care Education/Training Program; ADMIT Internal Medicine
PROC: XW033E5 Introduction of Remdesivir Anti-infective into Peripheral Vein, Percutaneous Approach, New Technology Group 5 (ICD-10-PCS; principal; 2021-10-15)
PROC: 5A0945A Assistance with Respiratory Ventilation, 24-96 Consecutive Hours, High Flow/Velocity Cannula (ICD-10-PCS; 2021-10-23)
PROC: 5A09357 Assistance with Respiratory Ventilation, Less than 24 Consecutive Hours, Continuous Positive Airway Pressure (ICD-10-PCS; 2021-10-28)
DX: U07.1 COVID-19 (principal); J12.82 Pneumonia due to coronavirus disease 2019; J96.01 Acute respiratory failure with hypoxia; N17.9 Acute kidney failure, unspecified; Z68.41 Body mass index [BMI] 40.0-44.9, adult; E78.5 Hyperlipidemia, unspecified; I48.91 Unspecified atrial fibrillation; N18.30 Chronic kidney disease, stage 3 unspecified; I12.9 Hypertensive chronic kidney disease with stage 1 through stage 4 chronic kidney disease, or unspecified chronic kidney disease; E11.22 Type 2 diabetes mellitus with diabetic chronic kidney disease; I25.10 Atherosclerotic heart disease of native coronary artery without angina pectoris; E66.01 Morbid (severe) obesity due to excess calories; I95.1 Orthostatic hypotension; N28.9 Disorder of kidney and ureter, unspecified; E11.65 Type 2 diabetes mellitus with hyperglycemia; Z96.653 Presence of artificial knee joint, bilateral; Z96.642 Presence of left artificial hip joint; Z87.891 Personal history of nicotine dependence; Z79.84 Long term (current) use of oral hypoglycemic drugs; Z79.82 Long term (current) use of aspirin; Z85.46 Personal history of malignant neoplasm of prostate; Z95.5 Presence of coronary angioplasty implant and graft; I25.2 Old myocardial infarction
CPT/HCPCS: 99232-AI; 99233-AI; 99239; A9284; G0378; J0248; J0696; J1815; J7030; J7050; J8540